=== PATIENT | male | born 1970 | race Caucasian/White ===

== ENCOUNTER → 2018-09-04 07:53 | Outpatient (POV) | payer SELFPAY | PROVIDERS: Visit Provider Dermatology | DX: Z00.00 Encounter for general adult medical examination without abnormal findings (principal) ==

== ENCOUNTER 2018-12-09 11:28 | Emergency (ER) | payer OTHER, SELFPAY ==
[2018-12-09 11:30] VITALS: BP 132/81; PULSE 61; RESP 16; TEMP 36.4; O2SAT 99; BMI 22.5
--- NOTE | 2018-12-09 11:41 | PC.NURSE ---
DUSTY VELIZ and Lab at
--- NOTE | 2018-12-09 11:45 | HMH.EDGENADL ---
ED Disposition Clinical Impression: Needle stick injury of finger Disposition: Home, Self-Care Condition on Discharge: Good Instructions: DI for Puncture Wound Referrals: Cristino Harris [Primary Care Provider] - Time of Disposition: 11:51 - Critical Care Critical Care Time: No Attestation: On 12/09/18, the high probability of a clinically significant, sudden or life threatening deterioration of the following system(s) required my full and direct attention, intervention and personal management. The time I documented below is in addition to time spent performing reported procedures but includes the following listed in this critical care notation. Medical Decision Making - Medical Records Medical records reviewed: Yes: I reviewed the patient's medical records. - Fernandez Inquiry Pt receiving controlled substance: No Fernandez was queried for this patient: No Vital Signs: 12/09/18 11:30 Temperature 97.5 F L Temperature Source Oral Pulse Rate [Right Radial] 61 Respiratory Rate 16 Blood Pressure [Right Arm] 132/81 Blood Pressure Mean [Right Arm] 98 Blood Pressure Source [Right Arm] Automatic Cuff Blood Pressure Position [Right Arm] Sitting 02 Sat by Pulse Oximetry 99 Oxygen Delivery Method Room Air - Lab Data Lab results reviewed: Yes: I reviewed the patient's lab results. Orders (Tests/Meds): ORDERS Category Date Time Status Complete Blood Count Auto Diff Stat Lab 12/09/18 11:41 Ordered HBsAg Screen Stat Lab 12/09/18 11:41 Ordered HIV AB(1/2) Exposures Stat Lab 12/09/18 11:41 Ordered HIV Panel [id number] Stat Lab 12/09/18 11:41 Ordered Hepatitis B Surf Ab Quant Stat Lab 12/09/18 11:41 Ordered Hepatitis C Antibody Stat Lab 12/09/18 11:41 Ordered Liver Panel Stat Lab 12/09/18 11:41 Ordered PT/PTT Stat Lab 12/09/18 11:41 Ordered General Adult HPI - General Chief complaint: Skin/Abscess/Foreign Body Stated complaint: accidental needle stick Time Seen by Provider: 12/09/18 11:45 Mode of Arrival: Ambulatory Source of Information: Patient Limitations: No Limitations Description of Symptoms (Recalled from ER Triage Doc. by RN): needle stick to R index finger - History of Present Illness HPI narrative: stuck in OR doing a case. - Related Data Home Medications Medication Instructions Recorded Confirmed No Known Home Medications 12/09/18 12/09/18 Allergies Allergy/AdvReac Type Severity Reaction Status Date / Time No Known Allergies Allergy Verified 12/09/18 11:40 [facility] History - Hepatitis A Screen Drug use history?: No High risk sexual behaviors?: No History of sexually transmitted infection?: No Currently employed?: No Childcare worker?: No Do you have indoor plumbing?: Yes Do you have electricity?: Yes Attestation statement:: This patient has been screened for Hepatitis A risk factors. I have reviewed the patient's past medical history: Yes - Social History Alcohol Intake: never Occupational Status: employed - Psychiatric History Expresses thoughts of harming self/others: None Suicide Plan Description: No Plan ROS Obtained: Yes All systems reviewed & no additional complaints - Integumentary/Breasts Skin/Breast: Reports system reviewed and no additional complaints, except as docu, Denies rash, Denies skin pain, Denies skin swelling, Reports other (barely discernible to himself....punctate skin lesion.) Physical Exam - General General appearance: alert, in no apparent distress - Head Head exam: atraumatic, normocephalic, normal inspection - Eye Eye exam: Present: normal appearance - ENT ENT exam: Present: normal exam, normal oropharynx, mucous membranes moist, TM's normal bilaterally, normal external ear exam - Neck Neck exam: Present: normal inspection, full ROM, trachea midline. Absent: meningismus, lymphadenopathy - Respiratory Respiratory exam: Present: normal lung sounds bilaterally. Absent: respiratory distress - Cardiovascula
--- NOTE | 2018-12-09 11:48 | ED_ITS ---
ED Disposition Clinical Impression: Needle stick injury of finger Disposition: Home, Self-Care Condition on Discharge: Good Instructions: DI for Puncture Wound Referrals: Cristino Harris [Primary Care Provider] - Time of Disposition: 11:51 - Critical Care Critical Care Time: No Attestation: On 12/09/18, the high probability of a clinically significant, sudden or life threatening deterioration of the following system(s) required my full and direct attention, intervention and personal management. The time I documented below is in addition to time spent performing reported procedures but includes the following listed in this critical care notation. Medical Decision Making - Medical Records Medical records reviewed: Yes: I reviewed the patient's medical records. - Fernandez Inquiry Pt receiving controlled substance: No Fernandez was queried for this patient: No Vital Signs: 12/09/18 11:30 Temperature 97.5 F L Temperature Source Oral Pulse Rate [Right Radial] 61 Respiratory Rate 16 Blood Pressure [Right Arm] 132/81 Blood Pressure Mean [Right Arm] 98 Blood Pressure Source [Right Arm] Automatic Cuff Blood Pressure Position [Right Arm] Sitting 02 Sat by Pulse Oximetry 99 Oxygen Delivery Method Room Air - Lab Data Lab results reviewed: Yes: I reviewed the patient's lab results. Orders (Tests/Meds): ORDERS Category Date Time Status Complete Blood Count Auto Diff Stat Lab 12/09/18 11:41 Ordered HBsAg Screen Stat Lab 12/09/18 11:41 Ordered HIV AB(1/2) Exposures Stat Lab 12/09/18 11:41 Ordered HIV Panel [id number] Stat Lab 12/09/18 11:41 Ordered Hepatitis B Surf Ab Quant Stat Lab 12/09/18 11:41 Ordered Hepatitis C Antibody Stat Lab 12/09/18 11:41 Ordered Liver Panel Stat Lab 12/09/18 11:41 Ordered PT/PTT Stat Lab 12/09/18 11:41 Ordered General Adult HPI - General Chief complaint: Skin/Abscess/Foreign Body Stated complaint: accidental needle stick Time Seen by Provider: 12/09/18 11:45 Mode of Arrival: Ambulatory Source of Information: Patient Limitations: No Limitations Description of Symptoms (Recalled from ER Triage Doc. by RN): needle stick to R index finger - History of Present Illness HPI narrative: stuck in OR doing a case. - Related Data Home Medications Medication Instructions Recorded Confirmed No Known Home Medications 12/09/18 12/09/18 Allergies Allergy/AdvReac Type Severity Reaction Status Date / Time No Known Allergies Allergy Verified 12/09/18 11:40 [facility] History - Hepatitis A Screen Drug use history?: No High risk sexual behaviors?: No History of sexually transmitted infection?: No Currently employed?: No Childcare worker?: No Do you have indoor plumbing?: Yes Do you have electricity?: Yes Attestation statement:: This patient has been screened for Hepatitis A risk factors. I have reviewed the patient's past medical history: Yes - Social History Alcohol Intake: never Occupational Status: employed - Psychiatric History Expresses thoughts of harming self/others: None Suicide Plan Description: No Plan ROS Obtained: Yes All syst
[2018-12-09 11:57] LABS: Basophils # 0.1 K/mm3 (0-0.2); Basophils % 1.2 % (0.1-2.0); Eosinophils # 0.2 K/mm3 (0.0-0.4); Eosinophils % 3.6 % (0.1-12.0); Hematocrit 45.7 % (42.0-52.0); Hemoglobin 14.5 g/dL (14.1-18.0); Lymphocytes # 1.5 K/mm3 (0.7-4.5); Lymphocytes % 33.1 % (10-50); Mean Corpuscular HGB Conc 31.8 g/dL (31.8-35.4); Mean Corpuscular Hemoglobin 26.4 pg (27.0-31.2); Mean Corpuscular Volume 82.8 fl (80-94); Mean Platelet Volume 7.1 fl (7.4-10.4); Monocytes # 0.4 K/mm3 (0.1-1.0); Monocytes % 9.2 % (1.7-9.3); Neutrophils # 2.5 K/mm3 (1.8-7.8); Platelet Count 278 K/mm3 (142-424); Red Blood Count 5.51 M/mm3 (4.60-6.20); White Blood Count 4.6 K/mm3 (4.8-10.8)
[2018-12-09 12:07] LABS: HIV AB(1/2) Exposures Non-Reactive (Non-Reactiv)
[2018-12-09 12:10] VITALS: BP 126/66; PULSE 65; RESP 18; TEMP 36.6; O2SAT 100
[2018-12-09 12:12] LABS: INR 0.97 (0.9-1.1); Prothrombin Time 10.1 seconds (9.4-11.8)
[2018-12-09 12:14] LABS: Alanine Aminotransferase 39 U/L (12-78); Albumin Level 4.4 gm/dL (3.4-5.0); Alkaline Phosphatase 93 U/L (46-116); Aspartate Amino Transferase 33 U/L (15-37); Bilirubin,Direct 0.1 mg/dL (0.0-0.2); Bilirubin,Indirect 0.3 mg/dL (0.0-0.9); Bilirubin,Total 0.4 mg/dL (0.2-1.0)
[2018-12-11 05:08] LABS: HIV Screen 4th Generation wRfx Non Reactive (Non Reactive)
[2018-12-12 17:38] LABS: Hepatitis B Surf Ab Quant 309.1 mIU/mL (Immunity>9.9); Hepatitis B Surface Antigen Negative (Negative); Hepatitis C Antibody <0.1 s/co ratio (0.0-0.9)
== END 2018-12-09 12:11 | disposition home or self-care (01) ==
PROVIDERS: Emergency Provider Emergency Medicine; PCP Family Medicine
DX: S61.230A Puncture wound without foreign body of right index finger without damage to nail, initial encounter (principal); Y92.69 Other specified industrial and construction area as the place of occurrence of the external cause
CPT/HCPCS: 36415; 80076; 85025; 85610; 85730; 86703; 86706; 87340; 87380; 99282; G0432

== ENCOUNTER 2019-11-06 11:56 | Emergency (ER) | payer OTHER, SELFPAY ==
[2019-11-06 11:56] VITALS: RESP 19; O2SAT 100; BMI 22.4
--- NOTE | 2019-11-06 12:11 | HMH.EDWNDL ---
ED Disposition Clinical Impression: Needle stick injury of finger Disposition: Home, Self-Care Condition on Discharge: Good Instructions: DI for Laceration Repair - Critical Care Critical Care Time: No Attestation: On , the high probability of a clinically significant, sudden or life threatening deterioration of the following system(s) required my full and direct attention, intervention and personal management. The time I documented below is in addition to time spent performing reported procedures but includes the following listed in this critical care notation. Medical Decision Making - Medical Records Medical records reviewed: Yes: I reviewed the patient's medical records. - Fernandez Inquiry Pt receiving controlled substance: No Vital Signs: 11/06/19 11:56 Respiratory Rate 19 02 Sat by Pulse Oximetry 100 Orders (Tests/Meds): ORDERS Category Date Time Status HIV Panel [id number] Stat Lab 11/06/19 12:01 Ordered Hep B Surface Ab, Qual Stat Lab 11/06/19 12:01 Ordered Hepatitis C Antibody Stat Lab 11/06/19 12:10 Ordered Liver Panel Stat Lab 11/06/19 12:01 Ordered Wound/Laceration HPI - General Chief Complaint: Wound/Laceration Stated Complaint: needle stick Time Seen by Provider: 11/06/19 12:11 Mode of Arrival: Ambulatory Source of Information: Patient Limitations: No Limitations Description of Symptoms (Recalled from ER Triage Doc. by RN): Needlestick in the OR - History of Present Illness HPI narrative: 49-year-old male presents the ED after having a needlestick in the OR. He was using a suture needle and stuck his left index finger. Otherwise no other issues no other trauma. Location: other (Index finger) Place: work Patient tetanus UTD: Yes Context: accidental Associated symptoms: none - Related Data Home Medications Medication Instructions Recorded Confirmed No Known Home Medications 12/09/18 12/09/18 Allergies Allergy/AdvReac Type Severity Reaction Status Date / Time No Known Allergies Allergy Verified 12/09/18 11:40 [facility] History - Hepatitis A Screen Drug use history?: No High risk sexual behaviors?: No History of sexually transmitted infection?: No Currently employed?: No Childcare worker?: No Do you have indoor plumbing?: Yes Do you have electricity?: Yes Attestation statement:: This patient has been screened for Hepatitis A risk factors. I have reviewed the patient's past medical history: Yes - Social History Educational Level: Completed High School Alcohol Intake: never Occupational Status: employed ROS Obtained: Yes All systems reviewed & no additional complaints - Constitutional Constitutional: Reports system reviewed and no additional complaints, except as docu - Eyes Eyes: Reports system reviewed and no additional complaints, except as docu - ENT Ears, Nose, Mouth, and Throat: Reports system reviewed and no additional complaints, except as docu - Cardiovascular Cardiovascular: Reports system reviewed and no additional complaints, except as docu - Respiratory Respiratory: Yes system reviewed and no additional complaints, except as docu - Gastrointestinal Gastrointestingal: Reports: system reviewed and no additional complaints, except as docu - Genitourinary Male Genitourinary: Reports system reviewed and no additional complaints, except as docu Female Genitourinary: Reports system reviewed and no additional complaints, except as docu - Musculoskeletal Musculoskeletal: Reports system reviewed and no additional complaints, except as docu - Integumentary/Breasts Skin/Breast: Reports system reviewed and no additional complaints, except as docu - Neurologic Neurologic: Reports system reviewed and no additional complaints, except as docu - Endocrine Endocrine: Reports system reviewed and no additional complaints, except as docu - Hematologic/Lymphatic Henatologic/Lymphatic: Reports system reviewed and no additional com
[2019-11-06 12:20] VITALS: BP 128/70; PULSE 69; RESP 18; TEMP 36.7; O2SAT 100
[2019-11-06 13:10] LABS: Alanine Aminotransferase 43 U/L (12-78); Albumin Level 4.7 g/dl (3.5-5.0); Alkaline Phosphatase 149 U/L (38-126); Aspartate Amino Transferase 70 U/L (17-59); Bilirubin,Indirect 0.5 mg/dL (0.0-0.9); Bilirubin,Total 0.5 mg/dl (0.2-1.3); Bilirubin,Unconjugated 0.6 mg/dL (0.0-1.1); Total Protein,Serum 7.8 g/dl (6.3-8.2)
[2019-11-07 11:38] LABS: HIV Screen 4th Generation wRfx Non Reactive (Non Reactive); Hep B Surface Ab, Qual Reactive (.); Hepatitis C Antibody <0.1 s/co ratio (0.0-0.9)
== END 2019-11-06 12:36 | disposition home or self-care (01) ==
PROVIDERS: Emergency Provider Family Medicine
DX: S61.231A Puncture wound without foreign body of left index finger without damage to nail, initial encounter (principal); W26.8XXA Contact with other sharp object(s), not elsewhere classified, initial encounter; Y92.69 Other specified industrial and construction area as the place of occurrence of the external cause; Y99.0 Civilian activity done for income or pay
CPT/HCPCS: 80076; 86703; 86706; 87380; 99282; G0432

== ENCOUNTER → 2020-01-21 16:23 | Outpatient (CLI) | payer BC, SELFPAY | PROVIDERS: PCP Family Medicine; Visit Provider Internal Medicine Adolescent Medicine | DX: Z20.828 Contact with and (suspected) exposure to other viral communicable diseases (principal) | CPT/HCPCS: U0003 ==

== ENCOUNTER → 2020-03-23 07:51 | Outpatient (CLI) | payer BC, SELFPAY | PROVIDERS: PCP Internal Medicine Adolescent Medicine; Visit Provider Internal Medicine Adolescent Medicine | DX: Z03.818 Encounter for observation for suspected exposure to other biological agents ruled out (principal) | CPT/HCPCS: U0003 ==

== ENCOUNTER → 2020-04-07 10:42 | Outpatient (POV) | payer BC, SELFPAY | PROVIDERS: Visit Provider Dermatology | DX: Z00.00 Encounter for general adult medical examination without abnormal findings (principal) ==

== ENCOUNTER → 2020-05-08 13:01 | Outpatient (CLI) | payer BC, SELFPAY | PROVIDERS: PCP Internal Medicine Adolescent Medicine; Visit Provider Internal Medicine Adolescent Medicine | DX: Z03.818 Encounter for observation for suspected exposure to other biological agents ruled out (principal) | CPT/HCPCS: U0003 ==

== ENCOUNTER → 2020-06-15 07:41 | Outpatient (CLI) | payer BC, SELFPAY ==
[2020-06-15 08:01] LABS: Adenovirus,PCR Not Detected (NotDetected); Bordetella Pertussis Not Detected (NotDetected); Chlamydophila Pneumoniae, PCR Not Detected (NotDetected); Coronavirus 229E Not Detected (NotDetected); Coronavirus NL63 Not Detected (NotDetected); Coronavirus OC43 Not Detected (NotDetected); Coronovirus HKU1,PCR Not Detected (NotDetected); Human Metapneumovirus Not Detected (NotDetected); Influenza A, PCR Not Detected (NotDetected); Influenza AH1, 2009 Not Detected (NotDetected); Influenza AH1, PCR Not Detected (NotDetected); Influenza AH3,PCR Not Detected (NotDetected); Influenza B, PCR Not Detected (NotDetected); Mycoplasma Pneumoniae, PCR Not Detected (NotDetected); Parainfluenza 1, PCR Not Detected (NotDetected); Parainfluenza 2, PCR Not Detected (NotDetected); Parainfluenza 3, PCR Not Detected (NotDetected); Parainfluenza 4, PCR Not Detected (NotDetected); Respiratory Syncytial Virus Not Detected (NotDetected); Rhinovirus/Enterovirus Not Detected (NotDetected)
[2020-06-15 09:40] LABS: Coronavirus 19, PCR Detected (NotDetected)
== END ==
PROVIDERS: PCP Internal Medicine Adolescent Medicine; Visit Provider Internal Medicine Adolescent Medicine
DX: Z20.828 Contact with and (suspected) exposure to other viral communicable diseases (principal); U07.1 COVID-19
CPT/HCPCS: 87581; 87633; 87798; U0003

== ENCOUNTER 2022-08-26 16:05 | Emergency (ER) | payer OTHER, BC, SELFPAY ==
[2022-08-26 16:05] VITALS: BP 132/83; PULSE 91; RESP 18; O2SAT 98; BMI 24.5
[2022-08-26 16:06] VITALS: BMI 24.6
--- NOTE | 2022-08-26 16:18 | PC.NURSE ---
Notified lab of orders to be drawn
--- NOTE | 2022-08-26 16:20 | PC.NURSE ---
HS aware of employee needle stick
--- NOTE | 2022-08-26 16:21 | HMH.EDGENADL ---
Discharge Plan Disposition Patient Disposition: Home, Self-Care Prescriptions Prescriptions: No Action No Known Home Medications Referrals Follow up/Referrals: Provider,Raquel, [Primary Care Provider] - See instructions Activity Restrictions/Add. Instructions Additional Instructions/Restrictions: Please follow-up per hospital protocol. If the patient of concern is positive for any communicable disease please follow-up with your primary care physician or with the emergency department as soon as possible. Otherwise please make sure that you have subsequent downstream testing 6 months from now to assure that you have not seroconverted. 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 The patient is a stroke patient from a alf who does not have known communicable diseases. He denies any significant pain denies having had any HIV hepatitis B hepatitis C or other communicable diseases in the past. He is down here for blood draws per protocol. This occurred in his finger. He did have double gloves and has irrigated the area. Related Data Home Medications Medication Instructions Recorded Confirmed No Known Home Medications 12/09/18 12/09/18 Allergies Allergy/AdvReac Type Severity Reaction Status Date / Time No Known Allergies Allergy Verified 12/09/18 11:40 [facility] Disclaimer: The information contained in this section may have been updated after the patient was seen, as this information can be updated by other users. Social History Smoking Status: Never smoker alcohol intake: never current occupational status: employed Travel in the last 8 weeks: None ROS Obtained: Yes All systems reviewed & no additional complaints except as documented Physical Exam General General appearance: alert Respiratory Respiratory exam: Present normal lung sounds bilaterally Cardiovascular Cardiovascular exam: Present regular rate Neurological Exam Neurological exam: Present alert and oriented X3 Medical Decision Making Fernandez Inquiry Pt receiving controlled substance: No Vital Signs: 08/26/22 16:05 08/26/22 16:58 Temperature 98.1 F Temperature Source Oral Pulse Rate 91 H Pulse Rate [Left Radial] 91 H Respiratory Rate 18 18 Blood Pressure 132/83 Blood Pressure [Right Arm] 132/83 Blood Pressure Mean [Right Arm] 99 Blood Pressure Source Automatic Cuff Blood Pressure Source [Right Arm] Automatic Cuff Blood Pressure Position Sitting Blood Pressure Position [Right Arm] Sitting 02 Sat by Pulse Oximetry 98 Oxygen Delivery Method Room Air Room Air Orders (Tests/Meds): ED MEDICATIONS Discontinued Medications Generic Name Dose Route Start Last Admin Trade Name Freq PRN Reason Stop Dose Admin Tetanus/Reduced Diphtheria/Acell Pertussis 0.5 ml 08/26/22 16:07 08/26/22 16:52 Tet/Diphth/Pert-Adult 0.5ml Syringe IM 08/26/22 16:08 0.5 ml .ONCE ONE Administration ORDERS Category Date Time Status Complete Blood Count Auto Diff Stat Lab 08/26/22 16:06 Ordered HBsAg Screen Stat Lab 08/26/22 16:06 Ordered HIV Panel [id number] Stat Lab 08/26/22 16:06 Ordered Hepatitis B Surf Ab Quant Stat Lab 08/26/22 16:06 Ordered Hepatitis C Antibody Stat Lab 08/26/22 16:06 Ordered Liver Panel Stat Lab 08/26/22 16:06 Ordered PT/PTT Stat Lab 08/26/22 16:06 Ordered Medical Decision Narrative: Patient with a very low risk needlestick injury for communicable disease. We discussed prevalence of disease in g
--- NOTE | 2022-08-26 16:22 | PC.NURSE ---
DUSTY VELIZ at
--- NOTE | 2022-08-26 16:34 | PC.NURSE ---
LAB HERE DRAWING LABS
[2022-08-26 16:53] LABS: Basophils % 0.9 % (0.1-2.0); Eosinophils # 0.2 K/mm3 (0.0-0.4); Eosinophils % 3.5 % (0.1-12.0); Hematocrit 43.1 % (42.0-52.0); Hemoglobin 14.3 g/dL (14.1-18.0); Lymphocytes # 0.7 K/mm3 (0.7-4.5); Lymphocytes % 14.5 % (10-50); Mean Corpuscular HGB Conc 33.2 g/dL (31.8-35.4); Mean Corpuscular Hemoglobin 28.7 pg (27.0-31.2); Mean Corpuscular Volume 86.6 fl (80-94); Mean Platelet Volume 7.5 fl (7.4-10.4); Monocytes # 0.4 K/mm3 (0.1-1.0); Monocytes % 7.5 % (1.7-9.3); Neutrophils # 3.4 K/mm3 (1.8-7.8); Neutrophils % 73.6 % (37.0-80.0); Platelet Count 221 K/mm3 (142-424); Red Blood Count 4.97 M/mm3 (4.60-6.20); White Blood Count 4.6 K/mm3 (4.8-10.8)
[2022-08-26 16:58] VITALS: BP 132/83; PULSE 91; RESP 18; TEMP 36.7; O2SAT 98
[2022-08-26 17:01] LABS: Alanine Aminotransferase 41 U/L (12-78); Aspartate Amino Transferase 54 U/L (17-59); Bilirubin,Unconjugated 0.2 mg/dL (0.0-1.1)
[2022-08-26 17:02] LABS: Albumin Level 4.5 g/dl (3.5-5.0); Alkaline Phosphatase 117 U/L (38-126); Bilirubin,Direct 0.2 mg/dl (0.0-0.4); Bilirubin,Indirect 0.1 mg/dL (0.0-0.9); Bilirubin,Total 0.3 mg/dl (0.2-1.3); Total Protein,Serum 7.6 g/dl (6.3-8.2)
[2022-08-26 17:05] LABS: Activated Partial Thrombo Time 28.5 seconds (22.8-30.6); INR 0.94 (0.9-1.1); Prothrombin Time 10.2 seconds (10.1-12.5)
[2022-09-05 02:17] LABS: HIV Screen 4th Generation wRfx Non Reactive; Hepatitis B Surf Ab Quant 379.7; Hepatitis B Surface Antigen Negative
[2022-09-05 02:18] LABS: Hepatitis C Antibody Non Reactive
== END 2022-08-26 17:01 | disposition home or self-care (01) ==
PROVIDERS: Emergency Provider Student in an Organized Health Care Education/Training Program
DX: S61.239A Puncture wound without foreign body of unspecified finger without damage to nail, initial encounter (principal); W46.0XXA Contact with hypodermic needle, initial encounter; Y99.0 Civilian activity done for income or pay; Z23 Encounter for immunization
CPT/HCPCS: 80076; 85025; 85610; 85730; 86703; 86706; 87340; 87380; 90471; 90715; 99284; 99285; G0432

== ENCOUNTER 2023-01-16 12:45 | Emergency (ER) | payer OTHER, BC, SELFPAY ==
[2023-01-16 12:45] VITALS: BP 117/80; PULSE 60; RESP 16; TEMP 36.6; O2SAT 98; BMI 24.9
--- NOTE | 2023-01-16 12:50 | HMH.EDGENADL ---
Discharge Plan Disposition Patient Disposition: Home, Self-Care Chief Complaint: Skin/Abscess/Foreign Body Prescriptions Prescriptions: No Action No Known Home Medications Referrals Follow up/Referrals: Provider,Referral, [Primary Care Provider] - See instructions Clinical Impressions Clinical Impression: Needle exposure, Needle stick injury of finger Instructions Patient Instructions: DI for Skin Abscess Discharge ED Provider: Markel Cheung General Adult HPI General Stated complaint: needle stick exposure Time Seen by Provider: 01/16/23 12:50 History of Present Illness HPI narrative: This is a 52-year-old male with no relevant medical history presenting with needlestick injury. Patient states that today, 01/16, was cleaning up after a surgery and received a needlestick from [employer]. No other injury was obtained, patient fully vaccinated. Related Data Home Medications Medication Instructions Recorded Confirmed No Known Home Medications 12/09/18 12/09/18 Allergies Allergy/AdvReac Type Severity Reaction Status Date / Time No Known Allergies Allergy Verified 12/09/18 11:40 [facility] Disclaimer: The information contained in this section may have been updated after the patient was seen, as this information can be updated by other users. Social History Smoking Status: Never smoker alcohol intake: never current occupational status: employed Travel in the last 8 weeks: None ROS Obtained: Yes All systems reviewed & no additional complaints except as documented Physical Exam General General appearance: alert and in no apparent distress Respiratory Respiratory exam: Absent respiratory distress Cardiovascular Cardiovascular exam: Present regular rate and normal rhythm Extremities Exam Extremities exam: Present normal inspection and full ROM Neurological Exam Neurological exam: Present alert, oriented X3 and normal gait Skin Skin exam: Present warm and dry Medical Decision Making Medical Records Medical records reviewed: Yes I reviewed the patient's medical records. Fernandez Inquiry Pt receiving controlled substance: No Fernandez was queried for this patient: No Orders (Tests/Meds): ORDERS Category Date Time Status Complete Blood Count Auto Diff Stat Lab 01/16/23 13:05 Received HBsAg Screen Stat Lab 01/16/23 13:05 Received HIV Panel [id number] Stat Lab 01/16/23 13:05 Received Hepatitis B Surf Ab Quant Stat Lab 01/16/23 13:05 Received Hepatitis C Antibody Stat Lab 01/16/23 13:05 Received Liver Panel Stat Lab 01/16/23 13:05 Received PT/PTT Stat Lab 01/16/23 13:05 Received Medical Decision Narrative: This is a 52-year-old male with no relevant medical history presenting with needlestick injury. Patient states that today, 01/16, was cleaning up after a surgery and received a needlestick from [employer]. No other injury was obtained, patient fully vaccinated. History was obtained via conversation with patient and chart review. On arrival, patient hemodynamically stable, alert, [oriented x4, ][appropriate, ]GCS [15], moving all extremities spontaneously, pupils equal and reactive to light. Full physical exam performed and nonactionable overall. Given patient presentation, workup, history, this most likely represents uncomplicated, low risk needlestick injury after surgery. Blood work ordered including CBC, hep B surface antigen, hep B surface antibody quant, hepatitis C, HIV, LFTs, and coags. Pending at time of discharge. Patient recently had education regarding these needlesticks, opted out at this time. Because patient at baseline without signs or symptoms of clinical decompensation, deemed appropriate for discharge. Results were relayed to patient who voiced understanding and were agreeable to outpatient management and follow up. Patient was discharged in hemodynamically stable condition with recommended primary care follow-up. Critical Care Time Ke[place]
[2023-01-16 12:51] VITALS: BMI 24.9
--- NOTE | 2023-01-16 12:56 | PC.NURSE ---
Notified ESAU Davis and message left with infection control nurse Allison
[2023-01-16 13:12] LABS: Basophils % 0.6 % (0.1-2.0); Eosinophils # 0.2 K/mm3 (0.0-0.4); Eosinophils % 3.8 % (0.1-12.0); Hemoglobin 14.2 g/dL (14.1-18.0); Lymphocytes # 1.7 K/mm3 (0.7-4.5); Lymphocytes % 31.1 % (10-50); Mean Corpuscular HGB Conc 32.3 g/dL (31.8-35.4); Mean Corpuscular Hemoglobin 27.4 pg (27.0-31.2); Mean Corpuscular Volume 84.8 fl (80-94); Mean Platelet Volume 7.8 fl (7.4-10.4); Monocytes # 0.4 K/mm3 (0.1-1.0); Monocytes % 7.8 % (1.7-9.3); Neutrophils % 56.6 % (37.0-80.0); Platelet Count 232 K/mm3 (142-424); Red Blood Count 5.19 M/mm3 (4.60-6.20); Red Cell Distribution Width 13.9 % (11.5-17.5); White Blood Count 5.3 K/mm3 (4.8-10.8)
[2023-01-16 13:19] LABS: Alanine Aminotransferase 45 U/L (12-78); Albumin Level 4.5 g/dl (3.5-5.0); Alkaline Phosphatase 109 U/L (38-126); Aspartate Amino Transferase 48 U/L (17-59); Bilirubin,Indirect 0.2 mg/dL (0.0-0.9); Bilirubin,Total 0.2 mg/dl (0.2-1.3); Bilirubin,Unconjugated 0.4 mg/dL (0.0-1.1); Total Protein,Serum 7.5 g/dl (6.3-8.2)
[2023-01-16 13:21] VITALS: BP 117/80; PULSE 60; RESP 16; TEMP 36.6; O2SAT 98
[2023-01-16 13:21] LABS: Activated Partial Thrombo Time 26.6 seconds (22.8-30.6); Prothrombin Time 10.8 seconds (10.1-12.5)
[2023-02-03 08:14] LABS: HIV Screen 4th Generation wRfx Non Reactive; Hepatitis B Surface Antigen Negative
[2023-02-03 08:15] LABS: Hepatitis B Surf Ab Quant 485.3; Hepatitis C Antibody Non Reactive
== END 2023-01-16 13:24 | disposition home or self-care (01) ==
PROVIDERS: Emergency Provider Emergency Medicine
DX: S61.239A Puncture wound without foreign body of unspecified finger without damage to nail, initial encounter (principal); W46.0XXA Contact with hypodermic needle, initial encounter
CPT/HCPCS: 36415; 80076; 85025; 85610; 85730; 86703; 86706; 87340; 87380; 99285; G0432

== ENCOUNTER 2023-08-14 17:37 | Emergency (ER) | payer OTHER, SELFPAY ==
[2023-08-14 17:38] VITALS: BP 140/89; PULSE 67; RESP 12; TEMP 36.4; O2SAT 98; BMI 24.7
--- NOTE | 2023-08-14 17:47 | ED_ITS ---
Discharge Plan Disposition Patient Disposition: Home, Self-Care Prescriptions Prescriptions: No Action No Known Home Medications Activity Restrictions/Add. 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 Was nonhollow bore needle on the lateral aspect of his thumb without any significant skin breakdown. Patient is low risk does not carry any known positive communicable diseases. Related Data Home Medications Medication Instructions Recorded Confirmed No Known Home Medications 12/09/18 12/09/18 Allergies Allergy/AdvReac Type Severity Reaction Status Date / Time No Known Allergies Allergy Verified 12/09/18 11:40 [facility] Disclaimer: The information contained in this section may have been updated after the patient was seen, as this information can be updated by other users. Social History Smoking Status: Never smoker alcohol intake: never current occupational status: employed Travel in the last 8 weeks: None ROS Obtained: Yes All systems reviewed & no additional complaints except as documented Physical Exam General General appearance: alert Respiratory Respiratory exam: Present normal lung sounds bilaterally Cardiovascular Cardiovascular exam: Present regular rate Neurological Exam Neurological exam: Present alert Skin Skin exam: Present other (No obvious penetrating wound) Medical Decision Making Fernandez Inquiry Pt receiving controlled substance: No Orders (Tests/Meds): ORDERS Category Date Time Status CBC w/Auto Diff [Complete Blood Count Auto Diff] Stat Lab 08/14/23 17:44 Ordered CMP [Comprehensive Metabolic Panel] Stat Lab 08/14/23 17:44 Ordered HIV Panel [id number] Stat Lab 08/14/23 17:45 Ordered Hepatitis B Surf Ab Quant Stat Lab 08/14/23 17:44 Ordered Hepatitis B surface antigen screen [HBsAg Screen] Stat Lab 08/14/23 17:44 Ordered Hepatitis C Antibody Stat Lab 08/14/23 17:45 Ordered PT/PTT Stat Lab 08/14/23 17:44 Ordered Medical Decision Narrative: 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 He cleaned this extensively right after the injury. Patient is low risk and does not carry a known diagnosis to warrant any type of prophylactic therapy. I discussed with him the risk of any type of prophylactic therapy in a patient without a known positive minutes exceedingly low likelihood that there is any significant possibility of disease transmission. He agrees to not get any type of prophylactic therapy. He is up-to-date on tetanus. Labs were sent per protocol he will follow-up per protocol as well. He was discharged in stable condition. Critical Care Critical Care Time Critical Care Time: No
[2023-08-14 18:21] VITALS: BP 140/89; PULSE 78; RESP 12; TEMP 36.4
[2023-08-14 18:33] LABS: Basophils % 0.3 % (0.1-2.0); Eosinophils # 0.2 K/mm3 (0.0-0.4); Eosinophils % 2.6 % (0.1-12.0); Hematocrit 42.5 % (42.0-52.0); Hemoglobin 13.9 g/dL (14.1-18.0); Lymphocytes # 2.3 K/mm3 (0.7-4.5); Lymphocytes % 36.3 % (10-50); Mean Corpuscular HGB Conc 32.8 g/dL (31.8-35.4); Mean Corpuscular Hemoglobin 28.9 pg (27.0-31.2); Mean Corpuscular Volume 88.3 fl (80-94); Mean Platelet Volume 7.8 fl (7.4-10.4); Monocytes # 0.6 K/mm3 (0.1-1.0); Monocytes % 8.9 % (1.7-9.3); Neutrophils # 3.3 K/mm3 (1.8-7.8); Platelet Count 228 K/mm3 (142-424); Red Blood Count 4.82 M/mm3 (4.60-6.20); Red Cell Distribution Width 13.9 % (11.5-17.5); White Blood Count 6.3 K/mm3 (4.8-10.8)
[2023-08-14 18:43] LABS: Chloride 102 mmol/L (98-107); Potassium 3.5 mmoL/L (3.5-5.1); Sodium 136 mmol/L (136-145)
[2023-08-14 18:45] LABS: Alanine Aminotransferase 47 U/L (12-78); Aspartate Amino Transferase 54 U/L (17-59); Blood Urea Nitrogen 26 mg/dl (9-20); Creatinine Clearance Estimated 58 mL/min (50-200); Estimated Glomerular Filt Rate 49 ml/min (>60); GFR (African American) 59 ML/MIN (>60)
[2023-08-14 18:46] LABS: Albumin Level 4.3 g/dl (3.5-5.0); Albumin/Globulin Ratio 1.5 (1.1-1.8); Alkaline Phosphatase 123 U/L (38-126); Anion Gap 5.5 mEq/L (5-15); Bilirubin,Total 0.3 mg/dl (0.2-1.3); Calcium 9.3 mg/dl (8.4-10.2); Carbon Dioxide 32 mmol/L (22.0-30.0); Globulin 2.8 g/dL (1.3-3.2); Glucose 93 mg/dl (74-100); Total Protein,Serum 7.1 g/dl (6.3-8.2)
[2023-08-14 18:48] LABS: Activated Partial Thrombo Time 27.4 seconds (22.8-30.6); INR 0.99 (0.9-1.1); Prothrombin Time 10.7 seconds (10.1-12.5)
[2023-08-16 08:24] LABS: Hepatitis B Surf Ab Quant 383.6 mIU/mL (Immunity>9.9); Hepatitis B Surface Antigen Negative (Negative)
[2023-08-18 10:18] LABS: HIV Screen 4th Generation wRfx Non Reactive; Hepatitis C Antibody Non Reactive
== END 2023-08-14 18:22 | disposition home or self-care (01) ==
PROVIDERS: Emergency Provider Student in an Organized Health Care Education/Training Program
DX: S61.039A Puncture wound without foreign body of unspecified thumb without damage to nail, initial encounter (principal); W46.0XXA Contact with hypodermic needle, initial encounter
CPT/HCPCS: 80053; 85025; 85610; 85730; 86703; 86706; 87340; 87380; 99285; G0432

== ENCOUNTER 2024-09-17 07:11 | Outpatient (CLI) | payer BC, SELFPAY ==
[2024-09-17 07:55] LABS: Basophils # 0.1 K/mm3 (0-0.2); Basophils % 0.9 % (0.1-2.0); Eosinophils # 0.4 K/mm3 (0.0-0.4); Eosinophils % 6.5 % (0.1-12.0); Hematocrit 46.1 % (42.0-52.0); Hemoglobin 15.4 g/dL (14.1-18.0); Lymphocytes # 1.8 K/mm3 (0.7-4.5); Lymphocytes % 33.1 % (10-50); Mean Corpuscular HGB Conc 33.4 g/dL (31.8-35.4); Mean Corpuscular Hemoglobin 28.3 pg (27.0-31.2); Mean Corpuscular Volume 84.7 fl (80-94); Mean Platelet Volume 9.8 fl (7.4-10.4); Monocytes # 0.7 K/mm3 (0.1-1.0); Monocytes % 12.6 % (1.7-9.3); Neutrophils # 2.5 K/mm3 (1.8-7.8); Neutrophils % 46.7 % (37.0-80.0); Platelet Count 264 K/mm3 (142-424); Red Blood Count 5.44 M/mm3 (4.60-6.20); Red Cell Distribution Width 14.5 % (11.5-17.5); White Blood Count 5.4 K/mm3 (4.8-10.8)
[2024-09-17 08:25] LABS: Chloride 103 mmol/L (98-107)
[2024-09-17 08:26] LABS: Potassium 5.1 mmoL/L (3.5-5.1); Sodium 136 mmol/L (136-145)
[2024-09-17 08:28] LABS: Alanine Aminotransferase 39 U/L (12-78); Anion Gap 6.1 mEq/L (5-15); Aspartate Amino Transferase 60 U/L (17-59); Blood Urea Nitrogen 23 mg/dl (9-20); Carbon Dioxide 32 mmol/L (22.0-30.0); Estimated Glomerular Filt Rate 57 ml/min (>60); GFR (African American) 69 ML/MIN (>60)
[2024-09-17 08:29] LABS: Alkaline Phosphatase 74 U/L (38-126); Bilirubin,Total 0.7 mg/dl (0.2-1.3); Glucose 82 mg/dl (74-100); Total Protein,Serum 6.5 g/dl (6.3-8.2)
[2024-09-17 08:43] LABS: Albumin Level 4.3 g/dl (3.5-5.0); Globulin 2.2 g/dL (1.3-3.2)
[2024-09-18 08:13] LABS: Testosterone,Total 979 ng/dL (264-916)
[2024-09-24 02:08] LABS: Testosterone,Free 14.8 pg/mL (7.2-24.0)
[2024-09-30 18:10] LABS: Testosterone, Total, LC/MS 897 ng/dL (.)
== END 2024-09-17 23:59 | disposition home or self-care (01) ==
LOC: LAB 07:12
PROVIDERS: PCP Internal Medicine Adolescent Medicine; Visit Provider Internal Medicine Adolescent Medicine
DX: E29.1 Testicular hypofunction (principal)
CPT/HCPCS: 36415; 80053; 84402; 84403; 85025

== ENCOUNTER 2025-02-07 13:02 | Outpatient (CLI) | payer BC, SELFPAY ==
--- OUTSIDE RECORDS SUMMARY | 2025-01-22 09:18 | XMS_ITS | Encounter Summary ---
Author Organization [facility] Address [address] [place] [address] Care Team Providers Care Human Resources Services Specialist Name Role Phone Arun Salmeron MD Primary Care Provider [phone] Reason for Referral * Diagnostic Imaging (Routine) - Closed Specialty Diagnoses / Procedures Referred By Contac t Referred To Contact Radiology Diagnoses Androgen deficiency Procedures DEXA Bone Density Axial Marek Moreno MD [address] [place] [address] Phone: tel: fax: Referral ID Status Reason Start Date Expiration Date Visits Re quested Visits Authorized Closed 01/08/2025 04/09/2026 1 1 Reason for Visit * Diagnostic Imaging (Routine) - Closed Specialty Diagnoses / Procedures Referred By Contac t Referred To Contact Radiology Diagnoses Androgen deficiency Procedures DEXA Bone Density Axial Marek Moreno MD [address] [place] [address] Phone: tel: fax: Referral ID Status Reason Start Date Expiration Date Visits Re quested Visits Authorized Closed 01/08/2025 04/09/2026 1 1 Encounter Details Date Type Department Care Team (Latest Contact Info) Description 01/22/2025 9:18 AM EDT - 01/22/2025 11:59 PM EDT Hospital Encounter [facility] [place] [address] [place] [phone] Marek Moreno MD [address] [address] Androgen deficiency Discharge Disposition: Home or Self Care Social History Tobacco Use Types Packs/Day Years Used Date Smoking Tobacco: Never Assessed Sex and Gender Information Value Date Recorded Sex Assigned at Male 01/21/2025 10:15 AM EDT Legal Sex Male 7:20 PM EST Gender Identity Not on file Sexual Orientation Not on file documented as of this encounter Plan of Treatment Not on file documented as of this encounter Procedures Procedure Name Priority Date/Time Associated Diagnosis Comments DEXA BONE DENSITY AXIAL Routine 01/22/2025 9:36 AM EDT Androgen deficiency documented in this encounter Results * DEXA Bone Density Axial (01/22/2025 9:36 AM EDT) Anatomical Region Laterality Modality Wrist, Hip, L-spine N/A Other 01/22/2025 9:46 AM EDT Impressions 01/22/2025 5:13 PM EDT Osteopenia of the L1-L4 vertebrae, femoral necks bilaterally, and total right hip. The ten year fracture risk assessment was not calculated because the patient has been CalmRx currently treated for osteoporosis. All the treatment decisions require clinical judgment and consideration of individual patient factors, including patient preferences, co-morbidities, previous drug use, risk factors not captured in the FRAX model (frailty, falls, vitamin D deficiency, increased bone turnover, interval significant decline in bone density) and possible under or over estimation of fracture risk by FRAX. Approaches to reduce osteoporosis related fracture risk include optimizing calcium and vitamin D status, appropriate weight bearing exercises and fall-prevention measurements. The National Osteoporosis Foundation recommends (http://www.nof.org/hcp/practice/fcqvmlti-xtr-bneaslyz-guidelines/clinicians-abdoulaye de) that FDA-approved medical therapies be considered in postmenopausal women and men aged equal or greater than 50 years with : a) hip or vertebral (clinical or morphometric) fracture; b) T-score of -2.5 or less at the spine or hip; c) Ten-year fracture probability by FRAX of greater than 3% for hip fracture of greater than 20% for major osteoporotic fracture. Secondary causes of bone loss should be evaluated if clinically indicated since the etiology of low BMD cannot be determined by BMD measurement alone. FOLLOWUP: Consider repeating the study in 2-3 years to reassess the patient's status or sooner if there is some new clinical indication. INTERVAL CHANGE: There was an increase in bone mineral density of the L1-L4 vertebrae by 12.5%, total left hip by 14.7%, and total right hip by 8.4% when compared to previous study performed on 12/13/2023. At this facility, the least significant change in the BMD at the left hip with 95% confidence is 0.821558 gm/cm2 at the hip and 0.997687 g/cm2 at the lumbar spine. Report dictated by: Consuelo Sams PA-c I have personally reviewed this case and agree with the findings above: Electronically Signed: Clovis Anguiano MD 01/22/2025 5:13 PM EDT Workstation ID: [id number] Narrative 01/22/2025 5:13 PM EDT DUAL-ENERGY X-RAY ABSORPTIOMETRY (DXA) INDICATION: Screening for osteoporosis, monitoring treatment, prior fracture COMPARISON: Previous bone mineral density exam performed on 12/13/2023 PROCEDURE: A DXA scan was performed using a Hologic densitometer. The lumbar spine L1-L4 was evaluated as well as bilateral total hip. The T-score compares the patient's bone mineral density with the peak bone mass of young normal patients. According to criteria established by the World Health Organization, patients with T-scores between 1.0 and 2.5 standard deviations BELOW the mean are osteopenic (low bone mass). Patients with T-scores EQUAL TO OR GREATER than 2.5 standard deviations below the mean are osteoporotic. The Z-score compares the patient bone mineral density with age and sex matched peers. According to the International Society for Clinical Densitometry's 2007 consensus conference: In women prior to menopause and men less than age 50, Z-scores, not T-scores are preferred. A Z-score of -2.0 or lower is defined as below the expected range for age and a Z-score above -2.0 is within the expected range for age. The WHO diagnostic criteria may be applied in women in the menopausal transition. Osteoporosis cannot be diagnosed in men under age 50 on the basis of BMD alone. TECHNICAL QUALITY: The study is of good technical quality. RESULTS: Lumbar Spine: The BMD measured in the L1-L4 region is 0.842 g/cm2. The average T-score is -2.3. The Z-score is -1.7. Total Hip: The BMD measured at the left total proximal femur is 0.928 g/cm2. The T-score is -0.7. The Z-score is -0.3. Femoral Neck: The BMD measured at the left femoral neck is 0.760 g/cm2. The T-score is -1.3. The Z-score is -0.4. Total Hip: The BMD measured at the right total proximal femur is 0.855 g/cm2. The T-score is -1.2. The Z-score is -0.8. Femoral neck: The BMD measured at the right femoral neck is 0.681 g/cm2. The T score is -1.8. The Z score is -0.9. Procedure Note Clovis Anguiano MD - 01/22/2025 DUAL-ENERGY X-RAY ABSORPTIOMETRY (DXA) INDICATION: Screening for osteoporosis, monitoring treatment, priorfracture COMPARISON: Previous bone mineral density exam performed on 12/13/2023 PROCEDURE: A DXA scan was performed using a Hologic densitometer. The lumbar spine L1-L4 was evaluated as well as bilateral total hip. The T-score compares the patient's bone mineral density with the peak bonemass of young normal patients. According to criteria established by the[facility], patients with T-scores between 1.0 and 2.5standard deviations BELOW the mean are osteopenic (low bone mass). Patients with T-scores EQUAL TO ORGREATER than 2.5 standard deviations below the mean are osteoporotic. The Z-score compares the patient bone mineral density with age and sexmatched peers. According to the International Society for ClinicalDensitometry's 2007 consensus conference: In women prior to menopause andmen less than age 50, Z-scores, not T-scores are preferred. A Z-score of -2.0 or lower is defined as belowthe expected range for age and a Z-score above -2.0 is within theexpected range for age. The WHO diagnostic criteria may be applied inwomen in the menopausal transition. Osteoporosis cannot be diagnosed in men under age 50 on the basis of BMDalone. TECHNICAL QUALITY: The study is of good technical quality. RESULTS: Lumbar Spine: The BMD measured in the L1-L4 region is 0.842 g/cm2. Theaverage T- score is -2.3. The Z-score is -1.7. Total Hip: The BMD measured at the left total proximal femur is 0.928g/cm2. The T-score is -0.7. The Z-score is -0.3. Femoral Neck: The BMD measured at the left femoral neck is 0.760 g/cm2.The T- score is -1.3. The Z-score is -0.4. Total Hip: The BMD measured at the right total proximal femur is 0.855g/cm2. The T-score is -1.2. The Z-score is -0.8. Femoral neck: The BMD measured at the right femoral neck is 0.681 g/cm2.The T score is -1.8. The Z score is -0.9. IMPRESSION: Osteopenia of the L1-L4 vertebrae, femoral necks bilaterally, and totalright hip. The ten year fracture risk assessment was not calculated because thepatient has been CalmRx currently treated for osteoporosis. All the treatment decisions require clinical judgment and consideration ofindividual patient factors, including patient preferences, co-morbidities,previous drug use, risk factors not captured in the FRAX model (frailty,falls, vitamin D deficiency, increased bone turnover, interval significant decline in bone density) andpossible under or over estimation of fracture risk by FRAX. Approaches toreduce osteoporosis related fracture risk include optimizing calcium andvitamin D status, appropriate weight bearing exercises and fall-prevention measurements. The NationalOsteoporosis Foundation recommends(http://www.nof.org/hcp/practice/ffoflnjy-tnm-yfarkfub-guidelines/clin ician s-guide) that FDA-approved medical therapies be considered in postmenopausal women and men aged equal or greater than 50 years with :a) hip or vertebral (clinical or morphometric) fracture; b) T-score of-2.5 or less at the spine or hip; c) Ten-year fracture probability by FRAXof greater than 3% for hip fracture of greater than 20% for major osteoporotic fracture. Secondary causes of bone loss should be evaluated if clinically indicatedsince the etiology of low BMD cannot be determined by BMD measurementalone. FOLLOWUP: Consider repeating the study in 2-3 years to reassess thepatient's status or sooner if there is some new clinical indication. INTERVAL CHANGE: There was an increase in bone mineral density of theL1-L4 vertebrae by 12.5%, total left hip by 14.7%, and total right hip by8.4% when compared to previous study performed on 12/13/2023. At this facility, the least significant change in the BMD at the left hipwith 95% confidence is 0.413401 gm/cm2 at the hip and 0.012318 g/cm2 atthe lumbar spine. Report dictated by: Consuelo Sams PA-c I have personally reviewed this case and agree with the findings above: Electronically Signed: Clovis Anguiano MD 01/22/2025 5:13 PM EDT Workstation ID: [id number] Marek Moreno MD IMG DXA ORDERABLES Final Res ult documented in this encounter Visit Diagnoses Diagnosis Androgen deficiency Other testicular hypofunction documented in this encounter Care Teams Human Resources Services Specialist Relationship Specialty Start Date End Date Arun Salmeron MD [facility] [place] [facility] [address] [place] [address] PCP - General Adolescent Medicine 12/13/23 documented as of this encounter
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
--- NOTE | 2025-02-07 13:04 | US_ITS ---
FINAL REPORT TECHNIQUE: Sonographic images in the region of the right scapula was obtained at the area of interest. CLINICAL HISTORY: MASS RT SHOULDER-- soft tissue COMPARISON: None. FINDINGS: The soft tissues of the imaged area, along the posterior right upper back, are unremarkable. There is no mass or fluid collection. Imaging of the contralateral side reveals a similar appearance. IMPRESSION: No ultrasound abnormality at the area of interest. If further evaluation is needed, consider MRI. Authenticated and ERN
--- OUTSIDE RECORDS SUMMARY | 2025-02-07 13:04 | XMS_ITS | Encounter Summary ---
Author Organization [facility] Address [address] [place] [address] Care Team Providers Care Cell Changer Name Role Phone Arun Salmeron MD Primary Care Provider [phone] Encounter Details Date Type Department Care Team (Latest Contact Info) Description 01/30/2025 Travel Social History Tobacco Use Types Packs/Day Years [...] file Travel History Travel Start Travel End [place] 01/12/2025 01/19/2025 documented as of this encounter Plan of Treatment Not on file documented as of this encounter Visit Diagnoses Not on filedocumented in this encounter Additional Health Concerns Assessment Noted Time A fall risk assessment has been complete d for the patient 01/30/2025 8:36 AM EDT A Body Mass Index follow-up plan has been documented for the patient 01/31/2025 8:44 AM EDT documented as of this encounter Care Teams Cell Changer Relationship Specialty Start Date End Date Arun Salmeron MD [address] [place] [address] PCP - General 01/21/25 documented as of this encounter
--- OUTSIDE RECORDS SUMMARY | 2025-02-07 13:05 | XMS_ITS | Encounter Summary ---
Author Organization Healthcare Address [address] [place] [address] Care Team Providers Care Aboriginal Education Worker Coordinator Name Role Phone Cristino Harris MD Primary Care Provider [phone] Arun Salmeron MD Primary Care Provider [phone] Encounter Details Date Type Department Care Team ([facility] Contact Info) Description 01/08/2025 Telephone [facility] [address] [facility], [address] [place] [id number] Marek Moreno MD [address] [place] [address] Social History Tobacco Use Types Packs/Day Years Used Date Smoking Tobacco: Never Smokeless Tobacco: Never Alcohol Use Standard Drinks/Week [...] 01/12/2025 01/19/2025 documented as of this encounter Miscellaneous Notes * Telephone Encounter - Rose Varghese LPN - 01/08/2025 10:45 AM EDT Faxed Dexa order to [facility] Alma Garber. Fax confirmation received. * Telephone Encounter - TiagoKendy - 01/08/2025 10:34 AM EDT Patient Phone Message Reason for Call: Aleshia called back with the fax number. attn Alma Garber Best contact number and optimal time of day to reach caller: Aleshia--[phone] Note: Please do not reply to this message. Follow-up communication and further actions as a result of this message need to be communicated with the patient directly, if the patient is not active onMyChart. If the patient is active on MyChart, they will receive notification of the communication/outcome via MyChart. * Telephone Encounter - Kendy Ordoñez - 01/08/2025 10:23 AM EDT Patient Phone Message Reason for Call: [facility] is asking for pt BMD order to be faxed to their office. Aleshia willcall back to provide the fax number Best contact number and optimal time of day to reach caller: Aleshia [phone] Note: Please do not reply to this message. Follow-up communication and further actions as a result of this message need to be communicated with the patient directly, if the patient is not active onMyChart. If the patient is active on MyChart, they will receive notification of the communication/outcome via MyChart. documented in this encounter Plan of Treatment Not on file documented as of this encounter Visit Diagnoses Not on filedocumented in this encounter Additional Health Concerns Assessment Noted Time A fall risk assessment has been complete d for the patient 01/25/2024 8:35 AM EDT A Body Mass Index follow-up plan has been documented for the patient 01/25/2024 9:12 AM EDT documented as of this encounter Care Teams Aboriginal Education Worker Coordinator Relationship Specialty Start Date End Date Cristino Harris MD [address] [place] [address] PCP - General 10/30/20 01/20/25 Arun Salmeron MD [address] [place] [address] PCP - General 01/21/25 documented as of this encounter
--- OUTSIDE RECORDS SUMMARY | 2025-02-07 13:05 | XMS_ITS | Encounter Summary ---
Author Organization [facility] Address [address] [place] [address] Care Team Providers Care Flooring Mechanic Name Role Phone Arun Salmeron MD Primary Care Provider [phone] Encounter Details Date Type Department Care Team (Latest Contact Info) Description 01/22/2025 Travel Social History Tobacco Use Types Packs/Day [...] Diagnoses Not on filedocumented in this encounter Care Teams Flooring Mechanic Relationship Specialty Start Date End Date Arun Salmeron MD [address] [facility] [address] [place] [address] PCP - General Adolescent Medicine 12/13/23 documented as of this encounter
--- OUTSIDE RECORDS SUMMARY | 2025-02-07 13:05 | XMS_ITS | Encounter Summary ---
Author Organization Healthcare Address [address] [place] [address] Care Team Providers Care Public Health Epidemiologist Name Role Phone Cristino Harris MD Primary Care Provider [phone] Arun Salmeron MD Primary Care Provider + [phone] Reason for Visit * Reason Comments Med Refill Encounter Details Date Type Department Care Team ([facility] st Contact Info) Description 01/18/2025 Refill [facility] [address] [facility], [address] [place] [address] Marek Moreno MD [address] [address] [place] [address] Social History Tobacco Use Types [...] Telephone Encounter - Rose Varghese LPN - 01/24/2025 7:37 AM EDT Medication alendronate 70 mg tablet once weekly refilled per provider approval. #4 with 0 [facility]. Follow up scheduled 01/30/25. * Telephone Encounter - Rose Varghese LPN - 01/21/2025 11:58 AM EDT Called patient and confirmed appointment. Rescheduled missed lab appointment and updated lab orders. documented in this encounter Plan of Treatment [...] documented as of this encounter Care Teams Public Health Epidemiologist Relationship Specialty Start Date End Date Cristino Harris MD [address] [place] [address] PCP - General 10/30/20 01/20/25 Arun Salmeron MD [address] [facility] [address] [place] [address] PCP - General 01/21/25 documented as of this encounter
--- OUTSIDE RECORDS SUMMARY | 2025-02-07 13:05 | XMS_ITS | Encounter Summary ---
Author Organization [facility] Address [address] [place] [address] Care Team Providers Care Technologist Development Name Role Phone Arun Salmeron MD Primary Care Provider [phone] Encounter Details Date Type Department Care Team (Latest Contact Info) Description 01/29/2025 Travel Social History Tobacco Use Types Packs/Day [...] file Travel History Travel Start Travel End [place] 01/12/2025 01/19/2025 documented as of this encounter [...] documented as of this encounter Care Teams Technologist Development Relationship Specialty Start Date End Date Arun Salmeron MD [address] [place], [place] [address] PCP - General 01/21/25 documented as of this encounter
--- OUTSIDE RECORDS SUMMARY | 2025-02-07 13:05 | XMS_ITS | Clinical Summary ---
Author Organization [facility] Address [address] [place] [address] Care Team Providers Care Logistics Planner Name Role Phone Arun Salmeron MD Primary Care Provider [phone] Allergies No known active allergies Medications cholecalcifer ol (Vitamin D3) 1.25 MG (49882 UT) capsule Active Magnesium Glycinate 120 MG capsule Active testosterone cypionate (Depo-Testost erone) 200 MG/ML injection INJECT ONE-HALF ML INTRAMUSCULARLY ONCE WEEKLY DIRECTED Active alendronate (Fosamax) 70 MG tablet Take 1 tablet (70 mg) by mouth every 7 (seven) days. Take in the morning with a full glass of water, on an empty stomach, and do not take anything else by mouth or lie down for the next 30 min. 13 tablet 3 024 2024 Discontinued alendronate (Fosamax) 70 MG tablet TAKE ONE TABLET BY MOUTH EVERY 7 DAYS; take in THE morning with a full GLASS of water, ON an EMPTY stomach, AND DO not take anything else by MOUTH OR lie down FOR THE NEXT 30 minutes. 4 tablet 025 2024 Discontinued(T herapy completed) calcitriol (Rocaltrol) 0.25 MCG capsule Take 1 capsule by mouth daily. 2024 Discontinued(T herapy completed) Encounters Date Type Department Care Team Description 01/30/2025 9:00 AM EDT Office Visit [facility] [address] [facility], [address] [place] [address] Marek Moreno MD Osteopenia of multiple sites (Primary Dx); Androgen deficiency; Osteoporosis of multiple sites; Hypervitaminosis D 01/30/2025 Travel 01/29/2025 Travel 01/22/2025 Travel 01/21/2025 Travel 01/18/2025 Refill [facility] [address], [address] [place] [address] Marek Moreno MD 01/08/2025 Telephone [facility] Nephrology, Bone & Mineral Metabolism [address], [address] [place] [address] Marek Moreno MD from Last 3 Months Family History Medical History Relation Name Comments Cancer Father You Joaquin Relation Name Status Comments Father You Joaquin Social History Tobacco Use Types Packs/Day Years [...] file Travel History Travel Start Travel End [place] 01/12/2025 01/19/2025 Last Filed Vital Signs Vital Sign Reading Time Taken Comments Blood Pressure 119/76 01/30/2025 8:38 AM EDT Pulse 60 01/30/2025 8:38 AM EDT Temperature 36.5 C (97.7 F) 01/30/2025 8:38 AM EDT Respiratory Rate 18 01/25/2024 8:32 AM EDT Oxygen Saturation 97% 01/30/2025 8:3 8 AM EDT Inhaled Oxygen Concentration - - Weight 80.5 kg (177 lb 7.5 oz) 01/30/2025 8:38 AM EDT with shoes on Height 171.5 cm (5' 7.5 ) 01/30/2025 8: 38 AM EDT with shoes on Body Mass Index 27.39 01/30/2025 8:38 AM EDT Plan of Treatment Health Maintenance Due Date Last Done Comments [facility]-HIV Screening 1968 [facility]-Hepatitis C Screening 1968 [facility]-/Child/Adol SDOH Screenings 1968 [facility]- SDOH Screenings 1986 [facility]-Adult SDOH Screenings 1986 [facility]-Hepatitis B Vaccines (1 of 3 - 19+ 3-dose series) 1987 CT Colonography 2013 Colonoscopy 2013 FIT-DNA 2013 FIT 2013 FOBT 2013 Sigmoidoscopy 2013 [facility]-Colorectal Cancer Screening 2013 [facility]-Pneumococcal Vaccine: 50 + Years (1 of 1 - PCV) 2018 TNW-WPWRY-25 Vaccine (3 - season) 2024 06/17/2021, 05/19/2021 [facility]-Zoster Vaccines (2 of 2) 07/15/2024 05/20/2024 [facility]-Depression Screening 01/24/2025 024, 01/25/2024 [facility]-Influenza Vaccine (#1) 2025 [facility]-Bone Density Scan 01/22/2026 01/22/2025 , 12/13/2023 [facility]-DTaP,Tdap,and Td Vaccine s (2 - Td or Tdap) 08/26/2032 08/26/2022, 01/07/1999 [facility]-Obesity Intervention Completed 025, 01/25/2024 HPV Vaccines Aged Out No longer eligi ble based on patient's age to complete this topic [facility]-HIB Vaccines Aged Out No longer e ligible based on patient's age to complete this topic [facility]-Hepatitis A Vaccines Aged Out No longer eligible based on patient's age to complete this topic [facility]-IPV Vaccines Aged Out No longer e ligible based on patient's age to complete this topic [facility]-Rotavirus Vaccines Aged Out No lo nger eligible based on patient's age to complete this topic Procedures Procedure Name Priority Date/Time Associated Diagnosis Comments PHOSPHORUS, PLASMA Routine 01/22/2025 8: 04 AM EDT Androgen deficiency Osteoporosis of multiple sites ALBUMIN, SERUM Routine 01/22/2025 8:04 AM EDT Testicular hyperfunction Senile osteoporosis TESTOSTERONE, FREE AND TOTAL Routine 01/22/2025 8:04 AM EDT Testicular hyperfunction Senile osteoporosis BONE SPECIFIC ALKALINE PHOSPHATASE Routine 01/22/2025 8:04 AM EDT Androgen deficiency Osteoporosis of multiple sites C-TELOPEPTIDE Routine 01/22/2025 8:04 AM EDT Androgen deficiency Osteoporosis of multiple sites VITAMIN D 25 HYDROXY Routine 01/22/2025 8:04 AM EDT Androgen deficiency Osteoporosis of multiple sites TESTOSTERONE, FREE AND TOTAL (ORDERABLE) Routine 01/22/2025 8:04 AM EDT Testicular hyperfunction Senile osteoporosis CBC WITH AUTO DIFFERENTIAL Routine 01/22/2025 8:04 AM EDT Testicular hyperfunction Senile osteoporosis COMPREHENSIVE METABOLIC PANEL, PLASMA Routine 01/22/2025 8:04 AM EDT Testicular hyperfunction Senile osteoporosis TESTOSTERONE, FREE, BIO AND TOTAL, MS Routine 01/22/2025 8:04 AM EDT Testicular hyperfunction Senile osteoporosis from Last 3 Months Results * Bone Specific Alkaline Phosphatase (01/22/2025 8:04 AM EDT) Bone Specific Alkaline Phosphatase 9.9 6.5 - 20.1 ug/L 01/22/2025 11:02 AM EDT [facility] Comment:Test performed at [facility], Special Chemistry Laboratory. Blood Venous blood specimen / Unknown Venipuncture / Unknown 01/22/2025 8:04 AM EDT 01/22/2025 8:05 AM EDT us Marek Moreno MD LAB REF LAB BLOOD AND FLUID O RD Final Result [facility] [address] [place] [address] * Albumin, Serum (01/22/2025 8:04 AM EDT) Blood Venous blood specimen / Unknown Venipuncture / Unknown 01/22/2025 8:04 AM EDT 01/22/2025 8:05 AM EDT us Arun Salmeron MD LAB BLOOD ORDERABLES Final R esult Performing Organization Address [facility]/ZIP Co de Phone Number [facility] [address] [place] [address] * C-Telopeptide (01/22/2025 8:04 AM EDT) C Telopeptide Beta Cross Linked Serum Result 182 161 - 737 pg/mL 01/24/2025 7:28 AM EDT [facility] ([place]) Blood Venous blood specimen / Unknown Venipuncture / Unknown 01/22/2025 8:04 AM EDT 01/22/2025 8:05 AM EDT Narrative [facility] ([place]) - 01/24/2025 7:28 AM EDT REFERENCE INTERVAL: C-Telopeptide, [id number], Serum Access complete set of age- and/or gender-specific reference intervals for this test in the [facility] Test Directory ([facility]). Performed By: [facility] [address] [place] [id number] Curtain Cutter Hand: Marek Palmer MD, PhD CLIA Number: [id number] us Marek Moreno MD LAB BLOOD ORDERABLES Final Re sult Performing Organization Address City/[facility] Co de Phone Number [facility] ([email or web address]) [address] [place] [address] * (ABNORMAL) Testosterone, Free and Total (01/22/2025 8:04 AM EDT) Testosterone Total 974.2(H) 264.0 - 916.0 ng/dL 01/24/2025 1:48 PM EDT [facility] Sex Hormone Binding Globulin 50.4 11.2 - 78.1 nmol/L 01/24/2025 1:48 PM EDT [facility] Free Testosterone - Calculated (pg/mL) 183.0(H) 35.8 - 168.2 pg/mL 01/24/2025 1:48 PM EDT [facility] Free Testosterone (%) 1.9 % 01/24/2025 1:48 PM EDT [facility] ALBUMIN CALCULATED TOX 4.1 g/dL 01/24/2025 1:48 PM EDT [facility] Blood Venous blood specimen / Unknown Venipuncture / Unknown 01/22/2025 8:04 AM EDT 01/22/2025 8:05 AM EDT Narrative [facility] - 01/24/2025 1:48 PM EDT Method: o SHBG: Electrochemiluminescence immunoassay o Total Testosterone: LC-MS/MS o Free T: Calculation Free testosterone concentration is calculated using total testosterone (measured by mass spectrometry) and the binding constants between testosterone, sex hormone-binding globulin (SHBG) and albumin. This test was developed and its performance characteristics determined by [facility]. It has not been cleared or approved by the FDA. The laboratory is regulated under CLIA as qualified to perform high-complexity testing. This test is used for clinical purposes. Arun Salmeron MD LAB BLOOD ORDERABLES Final R esult [facility] [address] [place] [address] * Testosterone, bioavailable (M) (01/22/2025 8:04 AM EDT) [employer] Signature Testosterone, Total 1067 250 - 1100 ng/dL 01/25/2025 12:53 PM EDT [facility] ([facility]) ([place]) Comment: For additional information, please refer to http://[email or web address].[email or web address]/faq/ [email or web address] (This link is being provided for informational/ educational purposes only.) This test was developed and its analytical performance characteristics have been determined by [employer] [place], [place]. It has not been cleared or approved by the U.S. Food and Drug Administration. This assay has been validated pursuant to the CLIA regulations and is used for clinical purposes. Testosterone, Free 140.9 46.0 - 224.0 pg/mL 01/25/2025 12:53 PM EDT [facility] ([facility]) ([facility]) Testosterone, Bioavailable 253.0 110.0 - 575.0 ng/dL 01/25/2025 12:53 PM EDT [facility] ([facility] ([place]) Sex Hormone Binding Globulin 43 22 - 77 nmol/L 01/25/2025 12:53 PM EDT [facility] ([facility] ([place]) ALBUMIN 3.9 3.6 - 5.1 g/dL 01/25/2025 12:53 PM EDT [facility] ([facility] ([place]) Comment: Test Performed by [facility], [employer], [address] [place] [id number] Yehuda August M.D., Ph.D., Director of Laboratories , [place] [id number] Blood Arterial blood specimen / Unknown Arterial Puncture / Unknown 01/22/2025 8:04 AM EDT 01/22/2025 8:05 AM EDT Narrative [facility] ([facility]) ([facility] - 01/25/2025 12:53 PM EDT Performing Organization Information: Site ID: [id number] Name: [employer] [facility] Address: [address] [place] [address] Director: Yehuda August MD PhD Arun Salmeron MD LAB BLOOD ORDERABLES Final R esult [facility] ([facility] ([place]) [employer] [facility] [address] [facility] [place] [address] * Vitamin D 25 Hydroxy (01/22/2025 8:04 AM EDT) [facility] Vitamin D 25 Hydroxy 78.8 20.0 - 80.0 ng/mL 01/22/2025 11:37 AM EDT [facility] Blood Venous blood specimen / Unknown Venipuncture / Unknown 01/22/2025 8:04 AM EDT 01/22/2025 8:05 AM EDT Narrative [facility] - 01/22/2025 11:37 AM EDT Testing performed on [employer], standardized against NIST SRM 2972. When testing samples from patients whose predominant form of vitamin D is vitamin D2, such as patients receiving vitamin D2 supplementation, results that are subtherapeutic should be confirmed with another method, such as LC-MS/MS, before being used for patient management. Vitamin D, 25-Hydroxy reference range, age 18 years and up: Deficiency: <12 ng/mL Insufficiency: 12 to 19 ng/mL Sufficiency: 20 to 80 ng/mL Possible toxicity: >100 ng/mL us Marek Moreno MD LAB BLOOD ORDERABLES Final Re sult [facility] [address] [place] [address] * CBC and Differential (01/22/2025 8:04 AM EDT) WBC Count 5.33 3.70 - 10.30 10*3/uL LAB HEMATOLOGY METHOD 01/22/2025 10:40 AM EDT [facility] RBC Count 5.56 4.60 - 6.10 10*6/uL LAB HEMATOLOGY METHOD 01/22/2025 10:40 AM EDT [facility] HGB 15.6 13.7 - 17.5 g/dL LAB HEMATOLOGY METHOD 01/22/2025 10:40 AM EDT [facility] HCT 47.8 40.0 - 51.0 % LAB HEMATOLOGY METHOD 01/22/2025 10:40 AM EDT [facility] Platelet Count 254 155 - 369 10*3/uL LAB HEMATOLOGY METHOD 01/22/2025 10:40 AM EDT [facility] MCV 86 79 - 98 fL LAB HEMATOLOGY METHOD 01/22/2025 10:40 AM EDT [facility] MCH 28.1 26.0 - 32.0 pg LAB HEMATOLOGY METHOD 01/22/2025 10:40 AM EDT [facility] MCHC 32.6 30.7 - 35.5 g/dL LAB HEMATOLOGY METHOD 01/22/2025 10:40 AM EDT [facility] RDW 14.5 11.5 - 14.5 % LAB HEMATOLOGY METHOD 01/22/2025 10:40 AM EDT [facility] MPV 10.6 8.8 - 12.5 fL LAB HEMATOLOGY METHOD 01/22/2025 10:40 AM EDT [facility] nRBC 0.0 <=0.0 per 100 WBCs LAB HEMATOLOGY METHOD 01/22/2025 10:40 AM EDT [facility] Differential Type Automated LAB HEMATOLOGY METHOD 01/22/2025 10:40 AM EDT [facility] Neutrophils % 51 % LAB HEMATOLOGY METHOD 01/22/2025 10:40 AM EDT [facility] Lymphocytes % 30 % LAB HEMATOLOGY METHOD 01/22/2025 10:40 AM EDT [facility] Monocytes % 11 % LAB HEMATOLOGY METHOD 01/22/2025 10:40 AM EDT [facility] Eosinophils % 7 % LAB HEMATOLOGY METHOD 01/22/2025 10:40 AM EDT [facility] Basophils % 1 % LAB HEMATOLOGY METHOD 01/22/2025 10:40 AM EDT [facility] Immature Granulocytes % 0 % LAB HEMATOLOGY METHOD 01/22/2025 10:40 AM EDT [facility] Neutrophils Absolute 2.70 1.60 - 6.10 10*3/uL LAB HEMATOLOGY METHOD 01/22/2025 10:40 AM EDT [facility] Lymphocytes Absolute 1.60 1.20 - 3.90 10*3/uL LAB HEMATOLOGY METHOD 01/22/2025 10:40 AM EDT [facility] Monocytes Absolute 0.60 0.30 - 0.90 10*3/uL LAB HEMATOLOGY METHOD 01/22/2025 10:40 AM EDT [facility] Eosinophils Absolute 0.35 0.00 - 0.50 10*3/uL LAB HEMATOLOGY METHOD 01/22/2025 10:40 AM EDT [facility] Basophils Absolute 0.06 0.00 - 0.10 10*3/uL LAB HEMATOLOGY METHOD 01/22/2025 10:40 AM EDT [facility] Immature Granulocytes Absolute 0.02 0.00 - 0.06 10*3/uL LAB HEMATOLOGY METHOD 01/22/2025 10:40 AM EDT [facility] Blood Venous blood specimen / Unknown Venipuncture / Unknown 01/22/2025 8:04 AM EDT 01/22/2025 8:05 AM EDT Narrative [facility] - 01/22/2025 10:40 AM EDT Therapeutic decision making should be based on absolute values, rather than percentages. us Arun Salmeron MD LAB BLOOD ORDERABLES Final R esult Performing Organization Address [facility]/ZIP Co de Phone Number [facility] [address] [place] [address] * (ABNORMAL) Phosphorus, Plasma (01/22/2025 8:04 AM EDT) Phosphorus, Plasma 1.8(L) 2.5 - 4.5 mg/dL 01/22/2025 10:53 AM EDT [facility] Blood Venous blood specimen / Unknown Venipuncture / Unknown 01/22/2025 8:04 AM EDT 01/22/2025 8:05 AM EDT us Marek Moreno MD LAB BLOOD ORDERABLES Final Re sult Performing Organization Address City/[facility]/ZIP Co de Phone Number [facility] [address] [place] [address] * (ABNORMAL) Comprehensive metabolic panel (01/22/2025 8:04 AM EDT) Glucose, Plasma 87 74 - 99 mg/dL 01/22/2025 10:53 AM EDT [facility] BUN, Plasma 16 7 - 21 mg/dL 01/22/2025 10:53 AM EDT [facility] Creatinine, Plasma 1.21(H) 0.70 - 1.20 mg/dL 01/22/2025 10:53 AM EDT [facility] BUN/Creatinine Ratio 13 01/22/2025 10:53 AM EDT [facility] Sodium, Plasma 137 136 - 145 mmol/L 01/22/2025 10:53 AM EDT [facility] Potassium, Plasma 4.7 3.6 - 4.9 mmol/L 01/22/2025 10:53 AM EDT [facility] Chloride, Plasma 105 97 - 107 mmol/L 01/22/2025 10:53 AM EDT [facility] CO2, Plasma 24 22 - 29 mmol/L 01/22/2025 10:53 AM EDT [facility] Anion Gap 8 6 - 16 mmol/L 01/22/2025 10:53 AM EDT [facility] Total Calcium, Plasma 9.0 8.9 - 10.2 mg/dL 01/22/2025 10:53 AM EDT [facility] Total Protein 6.6 6.3 - 7.9 g/dL 01/22/2025 10:53 AM EDT [facility] Albumin, Plasma 4.1 3.5 - 5.2 g/dL 01/22/2025 10:53 AM EDT [facility] AST, Plasma 39 10 - 50 U/L 01/22/2025 10:53 AM EDT [facility] ALT, Plasma 29 10 - 50 U/L 01/22/2025 10:53 AM EDT [facility] Alkaline Phosphatase, Plasma 71 40 - 115 U/L 01/22/2025 10:53 AM EDT [facility] Total Bilirubin, Plasma 0.4 0.2 - 1.1 mg/dL 01/22/2025 10:53 AM EDT [facility] eGFRcr 70.3 mL/min/1.7 3m*2 01/22/2025 10:53 AM EDT [facility] Comment:Reported eGFRcr in m L/min/1.73m2 is based the CKD-EPI 2020 equation that does not use a race coefficient. Blood Venous blood specimen / Unknown Venipuncture / Unknown 01/22/2025 8:04 AM EDT 01/22/2025 8:05 AM EDT us Arun Salmeron MD LAB BLOOD ORDERABLES Final R esult [facility] [address] [place] [address] from Last 3 Months Insurance ANTHEM Care Teams Logistics Planner Relationship Specialty Start Date End Date Arun Salmeron MD [address] [place] [address] PCP - General 01/21/25
--- OUTSIDE RECORDS SUMMARY | 2025-02-07 13:05 | XMS_ITS | Clinical Summary ---
Author Organization [facility] Address [address] [place] [address] Care Team Providers Care Correctional Supervisor Lieutenant Name Role Phone Arun Salmeron MD Primary Care Provider [phone] Encounters Date Type Department Care Team Description 01/22/2025 9:18 AM EDT - 01/22/2025 11:59 PM EDT Hospital Encounter [facility] [address] [place] [address] Marek Moreno MD Androgen deficiency Discharge Disposition: Home or Self Care 01/22/2025 Travel from Last 3 Months Social History Tobacco Use Types Packs/Day Years Used Date Smoking Tobacco: Never Assessed Sex and Gender Information Value Date Recorded Sex Assigned at Male 01/21/2025 10:15 AM EDT Legal Sex Male 7:20 PM EST Gender Identity Not on file Sexual Orientation Not on file Plan of Treatment Health Maintenance Due Date Last Done Comments ANNUAL PHYSICAL 1968 HEPATITIS C SCREENING 1968 COLOGUARD 2013 COLON CANCER SCREENING 5 YEA R SIGMOIDOSCOPY 2013 COLONOSCOPY 2013 [address]AL CANCER SCREENING 2013 CT COLONOGRAPHY 2013 FECAL OCCULT BLOOD TEST 2013 FIT Testing (1 year) 2013 Pneumococcal Vaccine 50+ (1 of 1 - PCV) 2018 COVID-19 Vaccine ( season) 2024, 05/19/2021 ZOSTER VACCINE (2 of 2) 07/15/2024 05/20/2024 INFLUENZA VACCINE 03/19/2025 TDAP/TD VACCINES (2 - Td or Tdap) 08/26/2032 023, 01/07/1999 Procedures Procedure Name Priority Date/Time Associated Diagnosis Comments DEXA BONE DENSITY AXIAL Routine 01/22/2025 9:36 AM EDT Androgen deficiency from Last 3 Months Results * DEXA Bone Density Axial (01/22/2025 [...] fall-prevention measurements. The National Osteoporosis Foundation recommends (http://www.nof.org/hcp/practice/uqepxpon-hbd-dtxvkkmj-guidelines/clinicians-abdoulaye de) that FDA-approved medical therapies be considered [...] the left hip with 95% confidence is 0.485849 gm/cm2 at the hip and 0.193247 g/cm2 at the lumbar spine. Report dictated by: Consuelo Sams PA-c I have personally reviewed this case and agree with the findings above: Electronically Signed: Clovis Anguiano MD 01/22/2025 5:13 PM EDT Workstation ID: [id number] Narrative 01/22/2025 5:13 PM EDT DUAL-ENERGY X-RAY [...] normal patients. According to criteria established by the[facility], patients with T-scores between 1.0 [...] exercises and fall-prevention measurements. The NationalOsteoporosis Foundation recommends(http://www.nof.org/hcp/practice/bpxebtui-ciz-rgceyjna-guidelines/clin ician s-guide) that FDA-approved medical therapies be [...] at the left hipwith 95% confidence is 0.709127 gm/cm2 at the hip and 0.811020 g/cm2 atthe lumbar spine. Report dictated by: Consuelo Sams PA-c I have personally reviewed this case and agree with the findings above: Electronically Signed: Clovis Anguiano MD 01/22/2025 5:13 PM EDT Workstation ID: [id number] us Marek Moreno MD IMG DXA ORDERABLES Final Res ult from Last 3 Months Insurance [employer] Care Teams Correctional Supervisor Lieutenant Relationship Specialty Start Date End Date Arun Salmeron MD [address] [facility] [address] [place] [address] PCP - General Adolescent Medicine 12/13/23
--- OUTSIDE RECORDS SUMMARY | 2025-02-07 13:05 | XMS_ITS | Encounter Summary ---
Author Organization [facility] Address [address] [address] Care Team Providers Care Facility Maintenance Manager Name Role Phone Cristino Harris MD Primary Care Provider [phone] Arun Salmeron MD Primary Care Provider [phone] Reason for Referral * Consultation (Routine) - Closed Specialty Diagnoses / Procedures Referred By Contac t Referred To Contact Nephrology Diagnoses Androgen deficiency Osteoporosis of multiple sites Arun Salmeron MD [address] [facility] [address] [place] [address] Phone: tel: fax: [facility] [place] Nephrology, Bone & Mineral Metabolism [address] [facility], [address] [place] [address] Phone: tel: fax: Referral ID Status Reason Start Date Expiration Date V isits Requested Visits Authorized [id number] Closed Specialty Services Required 12/18/2023 06/18/2025 1 1 Encounter Details Date Type Department Care Team (Late st Contact Info) Description 12/18/2023 Community [facility] [address] [place] [address] Arun Salmeron MD [address] [place] [address] Androgen deficiency (Primary Dx); Osteoporosis of multiple sites Social History Tobacco Use Types Packs/Day Years Used Date Smoking Tobacco: Never Assessed Sex and Gender Information Value Date Recorded Sex Assigned at Not on file Legal Sex Male 7:54 PM EDT Gender Identity Not on file Sexual Orientation Not on file Travel History Travel Start Travel End [place] 01/12/2025 01/19/2025 documented as of this encounter Plan of Treatment Scheduled Referrals Name Type Priority Associated Diagnoses Order Schedule Ambulatory referral to Nephrology Outpatient Referral Routine Androgen deficiency Osteoporosis of multiple sites Expected: 12/18/2023 (Approximate), Expires: 06/19/2025 documented as of this encounter Visit Diagnoses Diagnosis Androgen deficiency- Primary Other testicular hypofunction Osteoporosis of multiple sites documented in this encounter Care Teams Facility Maintenance Manager Relationship Specialty Start Date End Date Cristino Harris MD [address] [place] [address] PCP - General 10/30/20 01/20/25 Arun Salmeron MD [address] [facility] [address] [facility] [address] [place] [address] PCP - General 01/21/25 documented as of this encounter
--- OUTSIDE RECORDS SUMMARY | 2025-02-07 13:05 | XMS_ITS | Encounter Summary ---
Author Organization [facility] Address [address] [place] [address] Care Team Providers Care Rod Piler Name Role Phone Arun Salmeron MD Primary Care Provider [phone] Encounter Details Date Type Department Care Team (Latest Contact Info) Description 01/21/2025 Travel Social History Tobacco Use Types Packs/Day [...] file Travel History Travel Start Travel End [place] 01/12/2025 01/19/2025 documented as of this encounter [...] documented as of this encounter Care Teams Rod Piler Relationship Specialty Start Date End Date Arun Salmeron MD [address] [place] [address] PCP - General 01/21/25 documented as of this encounter
--- OUTSIDE RECORDS SUMMARY | 2025-02-07 13:05 | XMS_ITS | Encounter Summary ---
Author Organization [facility] Address [address] [place] [address] Care Team Providers Care Inspector Screen Printing Name Role Phone Arun Salmeron MD Primary Care Provider [phone] Encounter Details Date Type Department Care Team [...] file Travel History Travel Start Travel End [place] 01/12/2025 01/19/2025 documented as of this encounter [...] documented as of this encounter Care Teams Inspector Screen Printing Relationship Specialty Start Date End Date Arun Salmeron MD [address] [place], [place] [address] PCP - General 01/21/25 documented as of this encounter
== END 2025-02-07 23:59 | disposition home or self-care (01) ==
LOC: RAD 13:02
PROVIDERS: PCP Internal Medicine Adolescent Medicine; Visit Provider Internal Medicine Adolescent Medicine
DX: R22.31 Localized swelling, mass and lump, right upper limb (principal)
CPT/HCPCS: 76604

== ENCOUNTER 2025-04-24 06:57 | Outpatient (CLI) | payer BC, SELFPAY ==
--- OUTSIDE RECORDS SUMMARY | 2025-04-24 06:59 | XMS_ITS ---
Author Organization Unknown ENCOUNTERS Encounter Performer Location Date Diagnosis Diagnosis Status Emergency [address] [place] [address] [id number] DORIAN Pre Admit [address] [place] [address] [id number] DORIAN Pre Admit [address] [place] [address] [id number] Emergency [address] [place] [address] [id number] DORIAN Emergency [address] [place] [place] [address] [id number] DORIAN *Note: Encounters from your own facility or health system may be excluded. Allergies, Adverse Reactions, Alerts Allergen Type Severity Identification Date Medications Name Date Quantity Days Supplied [facility] Number
--- OUTSIDE RECORDS SUMMARY | 2025-04-24 06:59 | XMS_ITS | Encounter Summary ---
Author Organization [facility] Address [address] [place] [address] Care Team Providers Care Manager Agency Name Role Phone Cristino Harris MD Primary Care Provider [phone] Arun Salmeron MD Primary Care Provider [phone] Reason for Referral * Consultation (Routine) - Closed Specialty Diagnoses / Procedures Referred By Contac t Referred To Contact Nephrology Diagnoses Androgen deficiency Osteoporosis of multiple sites Arun Salmeron MD [address] [facility] [address] [place] [address] Phone: tel: fax: [facility] Nephrology, Bone & Mineral Metabolism [address] [facility] [address], [address] [place] [address] Phone: tel: fax: Referral ID Status Reason Start Date Expiration Date V isits Requested Visits Authorized [id number] Closed Specialty Services Required 12/18/2023 06/18/2025 1 1 Encounter Details Date Type Department Care Team (Late st Contact Info) Description 12/18/2023 Community [facility] [address] [place] [address] Arun Salmeron MD [address] [place] [address] Androgen deficiency (Primary Dx); Osteoporosis [...] sites documented in this encounter Care Teams Manager Agency Relationship Specialty Start Date End Date Cristino Harris MD [address] [place] [address] PCP - General 10/30/20 01/20/25 Arun Salmeron MD [address] [place] [address] PCP - General 01/21/25 documented as of this encounter
--- OUTSIDE RECORDS SUMMARY | 2025-04-24 06:59 | XMS_ITS | Clinical Summary ---
[facility] Organization [facility] Address [address] [place] [address] Care Team Providers Care Station Superintendent Name Role Phone Arun Salmeron MD Primary Care Provider [phone] Encounters Date Type Department Care Team Description 01/22/2025 9:18 AM EDT - 01/22/2025 11:59 PM EDT Hospital Encounter [facility] [address] [place] [address] Marek Moreno MD Androgen deficiency Discharge Disposition: [...] 50+ (1 of 1 - PCV) 2018 ZOSTER VACCINE (2 of 2) 07/15/2024 05/20/2024 INFLUENZA VACCINE 01/17/2025 TDAP/TD VACCINES (2 - Td or Tdap) [...] fall-prevention measurements. The National Osteoporosis Foundation recommends (http://www.nof.org/hcp/practice/ktbepswf-ujg-jmbdxwvc-guidelines/clinicians-abdoulaye de) that FDA-approved medical therapies be considered [...] the left hip with 95% confidence is 0.734640 gm/cm2 at the hip and 0.682931 g/cm2 at the lumbar spine. Report dictated by: Consuelo Sams PA-c I have personally reviewed this case and agree with the findings above: Electronically Signed: Clovis Anguiano MD 01/22/2025 5:13 PM EDT Workstation ID: [id number] Narrative 01/22/2025 5:13 PM EDT DUAL-ENERGY X-RAY [...] exercises and fall-prevention measurements. The NationalOsteoporosis Foundation recommends(http://www.nof.org/hcp/practice/raqqlyuw-vke-prudrdwj-guidelines/clin ician s-guide) that FDA-approved medical therapies be [...] at the left hipwith 95% confidence is 0.259078 gm/cm2 at the hip and 0.101106 g/cm2 atthe lumbar spine. Report dictated by: Consuelo Sams PA-c I have personally reviewed this case and agree with the findings above: Electronically Signed: Clovis Anguiano MD 01/22/2025 5:13 PM EDT Workstation ID: [id number] us Marek Moreno MD IMG DXA ORDERABLES Final Res ult from Last 3 Months Insurance EMPLOYEE Care Teams Station Superintendent Relationship Specialty Start Date End Date Arun Salmeron MD [address] [facility] [address] [address] PCP - General Adolescent Medicine 12/13/23
--- OUTSIDE RECORDS SUMMARY | 2025-04-24 06:59 | XMS_ITS | Clinical Summary ---
Author Organization [facility] Address [address] [place] [address] Care Team Providers Care Social Media Developer Name Role Phone Arun Salmeron MD Primary Care Provider [phone] Allergies No known active allergies Medications cholecalcifero l (Vitamin D3) 1.25 MG (20100 UT) capsule 01/25/20 24 Active Magnesium Glycinate 120 MG capsule 01/25/20 24 Active testosterone cypionate (Depo-Testoste rick) 200 MG/ML injection INJECT ONE-HALF ML INTRAMUSCULARLY ONCE WEEKLY DIRECTED 12/28/19 24 Active Encounters Date Type Department Care Team Description 01/30/2025 9:00 AM EDT Office Visit [facility] [address], [address] [place] [address] Marek Moreno MD Osteopenia of multiple sites (Primary Dx); Androgen deficiency; Osteoporosis of multiple sites; Hypervitaminosis D 01/30/2025 Travel 01/29/2025 Travel 01/22/2025 Travel from Last 3 Months Family History Medical [...] on file Sexual Orientation Not on file Last Filed Vital Signs Vital Sign Reading [...] [facility]-HIV Screening 1968 [facility]-Hepatitis C Screening 1968 [facility]-Infant/Child/Adol SDOH Screenings 1968 [facility]- SDOH Screenings 1986 [facility]-Adult SDOH Screenings 1986 [facility]-Hepatitis B Vaccines (1 of 3 - 19+ 3-dose series) 1987 CT Colonography 2013 Colonoscopy 2013 FIT-DNA 2013 FIT 2013 FOBT 2013 Sigmoidoscopy 2013 [facility]-Colorectal Cancer Screening 2013 [facility]-Pneumococcal Vaccine: 50 + Years (1 of 1 - PCV) 2018 [facility]-Zoster Vaccines (2 of 2) 07/15/2024 05/20/2024 [facility]-Depression Screening 01/24/2025 024, 01/25/2024 [id number] Vaccine (3 - 2024- season) 2025 06/17/2021, 05/19/2021 [facility]-Influenza Vaccine (#1) 2025 [facility]-Bone Density Scan [...] Specific Alkaline Phosphatase (01/22/2025 8:04 AM EDT) Pathologist [facility] Bone Specific Alkaline Phosphatase 9.9 6.5 - 20.1 ug/L 01/22/2025 11:02 AM EDT [facility] Comment:Test performed at [facility], [facility] Laboratory. Blood Venous blood specimen / Unknown Venipuncture / Unknown 01/22/2025 8:04 AM EDT 01/22/2025 8:05 AM EDT us Marek Moreno MD LAB REF LAB BLOOD AND FLUID O RD Final Result Performing Organization Address [facility] Co de Phone Number [facility] [address] [place] [address] * Albumin, Serum (01/22/2025 8:04 AM EDT) Blood Venous blood specimen / Unknown Venipuncture / Unknown 01/22/2025 8:04 AM EDT 01/22/2025 8:05 AM EDT us Arun Salmeron MD LAB BLOOD ORDERABLES Final R esult Performing Organization Address [facility]/ZIP Co de Phone Number [facility] [address] [place] [address] * C-Telopeptide (01/22/2025 8:04 AM EDT) [facility] [address] C Telopeptide Beta Cross Linked Serum Result 182 161 - 737 pg/mL 01/24/2025 7:28 AM EDT [facility] ([place]) Blood Venous blood specimen / Unknown Venipuncture / Unknown 01/22/2025 8:04 AM EDT 01/22/2025 8:05 AM EDT Narrative [facility] ([place]) - 01/24/2025 7:28 AM EDT REFERENCE INTERVAL: C-Telopeptide, Oduh-Nkhfj-Hbkthc, Serum Access complete set of age- and/or gender-specific reference intervals for this test in the [facility] Test Directory ([facility]). Performed By: [facility] [address] [place] [address] Hedge Fund Trader: Marek Palmer MD, PhD CLIA Number: [id number] Marek Moreno MD LAB BLOOD ORDERABLES Final Re sult [facility] ([place]) [address] [place] [address] * (ABNORMAL) Testosterone, Free and Total (01/22/2025 8:04 AM EDT) Testosterone Total 974.2(H) 264.0 - 916.0 ng/dL 01/24/2025 1:48 PM EDT [facility] Sex Hormone Binding Globulin 50.4 11.2 - 78.1 nmol/L 01/24/2025 1:48 PM EDT [facility] Free Testosterone - Calculated (pg/mL) 183.0(H) 35.8 - 168.2 pg/mL 01/24/2025 1:48 PM EDT [facility] Free Testosterone (%) 1.9 % 01/24/2025 1:48 PM EDT [facility] ALBUMIN CALCULATED TOX 4.1 g/dL 01/24/2025 1:48 PM EDT [facility] Blood Venous blood specimen / Unknown Venipuncture / Unknown 01/22/2025 8:04 AM EDT 01/22/2025 8:05 AM EDT Narrative [facility] - 01/24/2025 1:48 PM EDT Method: o SHBG: Electrochemiluminescence immunoassay o Total Testosterone: LC-MS/MS o Free T: Calculation Free testosterone concentration is calculated using total testosterone (measured by mass spectrometry) and the binding constants between testosterone, sex hormone-binding globulin (SHBG) and albumin. This test was developed and its performance characteristics determined by [facility]. It has not been cleared or approved by the FDA. The laboratory is regulated under CLIA as qualified to perform high-complexity testing. This test is used for clinical purposes. us Arun Salmeron MD LAB BLOOD ORDERABLES Final R esult [facility] [address] [place] [id number] * Testosterone, bioavailable (M) (01/22/2025 8:04 AM EDT) Testosterone, Total 1067 250 - 1100 ng/dL 01/25/2025 12:53 PM EDT [facility] ([place]) Comment: For additional information, please refer to http://education.[employer])/faq/ [email or web address] (This link is being provided for informational/ educational purposes only.) This test was developed and its analytical performance characteristics have been determined by [facility] [place], [place]. It has not been cleared or approved by the U.S. Food and Drug Administration. This assay has been validated pursuant to the CLIA regulations and is used for clinical purposes. Testosterone, Free 140.9 46.0 - 224.0 pg/mL 01/25/2025 12:53 PM EDT [facility] ([place]) Testosterone, Bioavailable 253.0 110.0 - 575.0 ng/dL 01/25/2025 12:53 PM EDT [facility] ([facility]) Sex Hormone Binding Globulin 43 22 - 77 nmol/L 01/25/2025 12:53 PM EDT [facility] ([facility]) ALBUMIN 3.9 3.6 - 5.1 g/dL 01/25/2025 12:53 PM EDT [facility] ([facility]) Comment: Test Performed by [facility] [employer] [address], [address] [place], [place] Yehuda August M.D., Ph.D., Director of Laboratories , CLIA [id number] Blood Arterial blood specimen / Unknown Arterial Puncture / Unknown 01/22/2025 8:04 AM EDT 01/22/2025 8:05 AM EDT Narrative [facility] ([facility]) ([place]) - 01/25/2025 12:53 PM EDT Performing Organization Information: Site ID: AMD Name: [facility] Address: [address] [place], [place] Director: Yehuda August MD PhD us Arun Salmeron MD LAB BLOOD ORDERABLES Final R esult [facility]) [facility] [address] [place] [address] * Vitamin D 25 Hydroxy (01/22/2025 8:04 AM EDT) Vitamin D 25 Hydroxy 78.8 20.0 - 80.0 ng/mL 01/22/2025 11:37 AM EDT [facility] Blood Venous blood specimen / Unknown Venipuncture / Unknown 01/22/2025 8:04 AM EDT 01/22/2025 8:05 AM EDT Narrative [facility] - 01/22/2025 11:37 AM EDT Testing performed on [employer], standardized against NIST SRM 2972. When testing [...] MD LAB BLOOD ORDERABLES Final Re sult [facility] [address] [place] [address] * CBC and Differential (01/22/2025 8:04 AM EDT) WBC Count 5.33 3.70 - 10.30 10*3/uL LAB HEMATOLOGY METHOD 01/22/2025 10:40 AM EDT [facility] RBC Count 5.56 4.60 - 6.10 10*6/uL LAB HEMATOLOGY METHOD 01/22/2025 10:40 AM EDT [facility] HGB 15.6 13.7 - 17.5 g/dL LAB HEMATOLOGY METHOD 01/22/2025 10:40 AM EDT [facility] HCT 47.8 40.0 - 51.0 % LAB HEMATOLOGY METHOD 01/22/2025 10:40 AM EDT [facility] Platelet Count 254 155 - 369 10*3/uL LAB HEMATOLOGY METHOD 01/22/2025 10:40 AM EDT [facility] MCV 86 79 - 98 fL LAB HEMATOLOGY METHOD 01/22/2025 10:40 AM EDT [facility] MCH 28.1 26.0 - 32.0 pg LAB HEMATOLOGY METHOD 01/22/2025 10:40 AM EDT [facility] MCHC 32.6 30.7 - 35.5 g/dL LAB HEMATOLOGY METHOD 01/22/2025 10:40 AM EDT [facility] RDW 14.5 11.5 - 14.5 % LAB HEMATOLOGY METHOD 01/22/2025 10:40 AM EDT [facility] MPV 10.6 8.8 - 12.5 fL LAB HEMATOLOGY METHOD 01/22/2025 10:40 AM EDT [facility] nRBC 0.0 <=0.0 per 100 WBCs LAB HEMATOLOGY METHOD 01/22/2025 10:40 AM EDT [facility] Differential Type Automated LAB HEMATOLOGY METHOD 01/22/2025 10:40 AM EDT [facility] Neutrophils % 51 % LAB HEMATOLOGY METHOD 01/22/2025 10:40 AM EDT [facility] Lymphocytes % 30 % LAB HEMATOLOGY METHOD 01/22/2025 10:40 AM EDT [facility] Monocytes % 11 % LAB HEMATOLOGY METHOD 01/22/2025 10:40 AM EDT [facility] Eosinophils % 7 % LAB HEMATOLOGY METHOD 01/22/2025 10:40 AM EDT [facility] Basophils % 1 % LAB HEMATOLOGY METHOD 01/22/2025 10:40 AM EDT [facility] Immature Granulocytes % 0 % LAB HEMATOLOGY METHOD 01/22/2025 10:40 AM EDT [facility] Neutrophils Absolute 2.70 1.60 - 6.10 10*3/uL LAB HEMATOLOGY METHOD 01/22/2025 10:40 AM EDT [facility] Lymphocytes Absolute 1.60 1.20 - 3.90 10*3/uL LAB HEMATOLOGY METHOD 01/22/2025 10:40 AM EDT [facility] Monocytes Absolute 0.60 0.30 - 0.90 10*3/uL LAB HEMATOLOGY METHOD 01/22/2025 10:40 AM EDT [facility] Eosinophils Absolute 0.35 0.00 - 0.50 10*3/uL LAB HEMATOLOGY METHOD 01/22/2025 10:40 AM EDT [facility] Basophils Absolute 0.06 0.00 - 0.10 10*3/uL LAB HEMATOLOGY METHOD 01/22/2025 10:40 AM EDT [facility] Immature Granulocytes Absolute 0.02 0.00 - 0.06 10*3/uL LAB HEMATOLOGY METHOD 01/22/2025 10:40 AM EDT [facility] Blood Venous blood specimen / Unknown Venipuncture / Unknown 01/22/2025 8:04 AM EDT 01/22/2025 8:05 AM EDT Narrative [facility] - 01/22/2025 10:40 AM EDT Therapeutic decision making should be based on absolute values, rather than percentages. us Arun Salmeron MD LAB BLOOD ORDERABLES Final R esult Performing Organization Address City/[facility]/ZIP Co de Phone Number [facility] [address] [place] [address] * (ABNORMAL) Phosphorus, Plasma (01/22/2025 8:04 AM EDT) Phosphorus, Plasma 1.8(L) 2.5 - 4.5 mg/dL 01/22/2025 10:53 AM EDT [facility] Blood Venous blood specimen / Unknown Venipuncture / Unknown 01/22/2025 8:04 AM EDT 01/22/2025 8:05 AM EDT us Marek Moreno MD LAB BLOOD ORDERABLES Final Re sult [facility] [address] [place] [address] * (ABNORMAL) Comprehensive metabolic panel (01/22/2025 8:04 AM EDT) [facility] Signature Glucose, Plasma 87 74 - 99 mg/dL 01/22/2025 10:53 AM EDT [facility] BUN, Plasma 16 7 - 21 mg/dL 01/22/2025 10:53 AM EDT [facility] Creatinine, Plasma 1.21(H) 0.70 - 1.20 mg/dL 01/22/2025 10:53 AM EDT [facility] BUN/Creatinine Ratio 13 01/22/2025 10:53 AM EDT [facility] Sodium, Plasma 137 136 - 145 mmol/L 01/22/2025 10:53 AM EDT [facility] Potassium, Plasma 4.7 3.6 - 4.9 mmol/L 01/22/2025 10:53 AM EDT [facility] Chloride, Plasma 105 97 - 107 mmol/L 01/22/2025 10:53 AM EDT [facility] CO2, Plasma 24 22 - 29 mmol/L 01/22/2025 10:53 AM EDT [facility] Anion Gap 8 6 - 16 mmol/L 01/22/2025 10:53 AM EDT [facility] Total Calcium, Plasma 9.0 8.9 - 10.2 mg/dL 01/22/2025 10:53 AM EDT [facility] Total Protein 6.6 6.3 - 7.9 g/dL 01/22/2025 10:53 AM EDT [facility] Albumin, Plasma 4.1 3.5 - 5.2 g/dL 01/22/2025 10:53 AM EDT [facility] AST, Plasma 39 10 - 50 U/L 01/22/2025 10:53 AM EDT [facility] ALT, Plasma 29 10 - 50 U/L 01/22/2025 10:53 AM EDT [facility] Alkaline Phosphatase, Plasma 71 40 - 115 U/L 01/22/2025 10:53 AM EDT [facility] Total Bilirubin, Plasma 0.4 0.2 - 1.1 mg/dL 01/22/2025 10:53 AM EDT [facility] eGFRcr 70.3 mL/min/1.7 3m*2 01/22/2025 10:53 AM EDT [facility] Comment:Reported eGFRcr in m L/min/1.73m2 is based the CKD-EPI 2020 equation that does not use a race coefficient. Blood Venous blood specimen / Unknown Venipuncture / Unknown 01/22/2025 8:04 AM EDT 01/22/2025 8:05 AM EDT us Aurn Salmeron MD LAB BLOOD ORDERABLES Final R esult [facility] [address] [place] [address] from Last 3 Months Insurance ANTHEM Care Teams Social Media Developer Relationship Specialty Start Date End Date Arun Salmeron MD [address] [place] [address] PCP - General 01/21/25
[2025-04-24 07:22] LABS: Hematocrit 46.2 % (42.0-52.0); Hemoglobin 15.3 g/dL (14.1-18.0); Immature Granulocytes % 0.3 %; Mean Corpuscular HGB Conc 33.1 g/dL (31.8-35.4); Mean Corpuscular Hemoglobin 28.2 pg (27.0-31.2); Mean Corpuscular Volume 85.1 fl (80-94); Nucleated Red Blood Cells % 0 %; Platelet Count 265 K/mm3 (142-424); Red Blood Count 5.43 M/mm3 (4.60-6.20); Red Cell Distribution Width-SD 45.6 fL; White Blood Count 6.9 K/mm3 (4.8-10.8)
[2025-04-24 08:40] LABS: Alanine Aminotransferase 42 U/L (12-78); Albumin Level 3.9 g/dl (3.5-5.0); Albumin/Globulin Ratio 1.3 (1.1-1.8); Alkaline Phosphatase 91 U/L (38-126); Anion Gap 7.6 mEq/L (5-15); Aspartate Amino Transferase 60 U/L (17-59); Bilirubin,Total 0.7 mg/dl (0.2-1.3); Blood Urea Nitrogen 26 mg/dl (9-20); Calcium 9.0 mg/dl (8.4-10.2); Carbon Dioxide 29 mmol/L (22.0-30.0); Chloride 102 mmol/L (98-107); Cholesterol 152 mg/dl (140-200); Creatinine,Serum 1.20 mg/dl (0.66-1.25); Estimated Glomerular Filt Rate 63 ml/min (>60); GFR (African American) 76 ML/MIN (>60); Globulin 3.0 g/dL (1.3-3.2); Glucose 89 mg/dl (74-100); HDL Cholesterol 91 mg/dl (40-60); Potassium 4.6 mmoL/L (3.5-5.1); Sodium 134 mmol/L (136-145); Total Protein,Serum 6.9 g/dl (6.3-8.2); Triglycerides 51 mg/dl (30-150)
== END 2025-04-24 23:59 | disposition home or self-care (01) ==
LOC: LAB 06:58
PROVIDERS: PCP Internal Medicine Adolescent Medicine; Visit Provider Internal Medicine Adolescent Medicine
DX: E29.1 Testicular hypofunction (principal); M81.0 Age-related osteoporosis without current pathological fracture; R79.89 Other specified abnormal findings of blood chemistry
CPT/HCPCS: 36415; 80053; 80061; 82610; 82670; 84402; 84403; 85025